=== PATIENT | female | born 1970 | race Two or more races ===

== ENCOUNTER 2016-08-19 01:22 | Inpatient (IN) | payer BC, OTHER ==
[~2016-08-19] VITALS: Ht 154.9 cm; Wt 111.5 kg
[2016-08-19 02:12] LABS: Basophils # (auto) 0.1 uL; Basophils % (auto) 0.7 % (0.0-2.0); Eosinophils # (auto) 0.2 uL; Eosinophils % (auto) 1.3 % (0.0-7.0); Hematocrit 38.4 % (36.0-46.0); Hemoglobin 12.6 g/dL (12.2-16.2); Lymphocytes # (auto) 4.5 uL; Lymphocytes % (auto) 36.2 % (10.0-50.0); Mean Corpuscular Hemoglobin 28.5 pg (28.0-32.0); Mean Corpuscular Hgb Conc. 32.7 g/dL (32.0-36.0); Mean Corpuscular Volume 87.2 fL (80.0-100.0); Mean Platelet Volume 12.1 fL (7.4-10.4); Monocytes # (auto) 0.8 uL; Monocytes % (auto) 6.7 % (0.0-12.0); Neutrophils # (auto) 6.8 uL; Neutrophils % (auto) 55.1 % (37.0-80.0); Platelet Count (auto) 225 10^3/uL (140-450); Red Cell Distribution Width 16.1 % (11.6-16.0); SUSPECT VIEW TRANSMISSION; White Blood Cell 12.4 10^3/uL (4.4-10.8)
[2016-08-19 02:26] LABS: INR 0.95 (0.9-1.15); Partial Thromboplastin Time 30.7 sec (22.64-33.71); Prothrombin Time 10.3 sec (9.37-12.3)
[2016-08-19 02:35] LABS: Albumin 3.9 g/dL (3.4-5.0); Bilirubin, Total 0.7 mg/dL (0.2-1.0); Calcium 9.4 mg/dL (8.5-10.1); Total Protein 8.4 g/dL (6.4-8.2)
[2016-08-19 02:36] LABS: Potassium 2.9 mmol/L (3.5-5.1)
[2016-08-19 02:38] LABS: B-Type Natriuretic Peptide 7.5 pg/mL (0-100); Temperature: 20.1 C (20.0-25.0)
[2016-08-19] MEDS: POTASSIUM CHL 20MEQ/100ML 100 ML IV SCH ×2 (03:16→05:30)
[2016-08-19] MEDS ORDERED: ONDANSETRON HCL 4 MG/2 ML VIAL IV ONE (05:15)
[2016-08-19] MEDS ORDERED: HYDROmorphone HCL 2 MG/ML VL IV ONE (05:15)
[2016-08-19] MEDS ORDERED: IPRATROPIUM BROM 0.5 MG/2.5ML INH SOL NEB ONE (05:45)
[2016-08-19] MEDS ORDERED: ALBUTEROL SULF 2.5 MG/0.5ML(0.5%) NEB SOLN NEB ONE (05:45)
[2016-08-19] MEDS ORDERED: cefTRIAXone 1GM/50ML D5W 50 ML IV ONE (05:45)
[2016-08-19] MEDS: SODIUM CHLORIDE 0.9% 1,000 ML IV SCH ×2 (06:39→23:06)
[2016-08-19] MEDS ORDERED: MORPHINE SULF INJ 2 MG/ML SYRINGE 1ML IV PRN (06:45)
[2016-08-19] MEDS ORDERED: ACETAMINOPHEN 325 MG TAB PO PRN (06:45)
[2016-08-19] MEDS ORDERED: NITROGLYCERIN 0.4 MG SL TAB SL PRN (06:45)
[2016-08-19] MEDS ORDERED: IPRATROPIUM BROM 0.5 MG/2.5ML INH SOL NEB PRN (06:45)
[2016-08-19] MEDS ORDERED: methylPREDNISolone SOD SUCC 125 MG/2 ML VL IV ONE (06:45)
[2016-08-19 08:20] VITALS: BP 129/58
[2016-08-19] MEDS: HYDROcodone-ACET 5/325MG TAB PO PRN ×2 (08:59→20:29)
[2016-08-19] MEDS ORDERED: ENOXAPARIN SOD 30 MG/0.3 ML SYRINGE SC SCH (10:00)
[2016-08-19] MEDS: FAMOTIDINE 20 MG TAB PO SCH ×2 (10:19→21:23)
[2016-08-19] MEDS: ENOXAPARIN SOD 40 MG/0.4 ML SYRINGE SC SCH (10:19)
[2016-08-19] MEDS: MORPHINE SULF INJ 2 MG/ML SYRINGE 1ML IV PRN ×3 (10:20→21:38)
[2016-08-19] MEDS: ONDANSETRON HCL 4 MG/2 ML VIAL IV PRN ×3 (10:20→21:38)
[2016-08-19] MEDS ORDERED: methylPREDNISolone SOD SUCC 40 MG/ML VL IV ONE ×2 (12:00→12:30)
[2016-08-19] MEDS ORDERED: DEXTROSE (50%) 50ML SYRG IV PRN (12:00)
[2016-08-19] MEDS ORDERED: PROMETHAZINE W/CODEINE 5 ML ORAL SYRUP PO PRN (12:00)
[2016-08-19] MEDS ORDERED: diphenhdrAMINE HCL 50 MG/1 ML VL IM ONE (12:30)
[2016-08-19] MEDS ORDERED: diphenhdrAMINE HCL 50 MG/1 ML VL IV ONE (12:45)
[2016-08-19] MEDS: guaiFENesin-DEXTROMETHORPHAN 5ML SYR PO PRN ×2 (12:56→17:22)
[2016-08-19 13:00] VITALS: BP 151/77
[2016-08-19 13:26] VITALS: BP 129/58
[2016-08-19 16:19] VITALS: BP 114/70
[2016-08-19] MEDS: ACCU-CHEK COMFORT CURVE STRIP VI SCH ×2 (16:43→21:24)
[2016-08-19] MEDS: InsuLIN REG 1unit/0.01ml Soln (100units/ml) SC SCH ×2 (17:29→21:38)
[2016-08-19] MEDS ORDERED: TIZA4TAB3 PO (18:52)
[2016-08-19] MEDS ORDERED: BECL80AE9 IN (18:52)
[2016-08-19] MEDS ORDERED: DICY10CA12 PO (18:52)
[2016-08-19] MEDS ORDERED: DULO1CAP3 PO (18:52)
[2016-08-19] MEDS ORDERED: METO-281 PO (18:52)
[2016-08-19] MEDS ORDERED: CITA-77 PO (18:52)
[2016-08-19] MEDS ORDERED: PROP80CA10 PO (18:52)
[2016-08-19] MEDS ORDERED: LISI-285 PO (18:52)
[2016-08-19] MEDS ORDERED: ZONI100C43 PO (18:52)
[2016-08-19] MEDS ORDERED: POTA99TA PO (18:52)
[2016-08-19] MEDS ORDERED: METF-312 PO (18:52)
[2016-08-19] MEDS ORDERED: PREG300C12 PO (18:52)
[2016-08-19] MEDS: ALBUTEROL SULF 2.5 MG/0.5ML(0.5%) NEB SOLN NEB PRN (19:29)
[2016-08-19] MEDS: methylPREDNISolone SOD SUCC 40 MG/ML VL IV SCH (21:23)
[2016-08-19] MEDS: diphenhdrAMINE HCL 25 MG CAP PO PRN (21:58)
[2016-08-19 22:00] VITALS: BP_SYST 110; BP_SYST 112; BP_DIAS 63; BP_DIAS 76
[2016-08-19] MEDS: TEMAZEPAM 15 MG CAP PO PRN (23:07)
[2016-08-20] MEDS: guaiFENesin-DEXTROMETHORPHAN 5ML SYR PO PRN ×2 (01:12→15:05)
[2016-08-20] MEDS: MORPHINE SULF INJ 2 MG/ML SYRINGE 1ML IV PRN ×4 (02:03→20:03)
[2016-08-20] MEDS: ONDANSETRON HCL 4 MG/2 ML VIAL IV PRN ×4 (02:04→20:03)
[2016-08-20 05:00] VITALS: BP 110/63
[2016-08-20 06:06] LABS: Basophils # (auto) 0 uL; Eosinophils # (auto) 0 uL; Hematocrit 37.4 % (36.0-46.0); Hemoglobin 12.2 g/dL (12.2-16.2); Lymphocytes # (auto) 1.6 uL; Lymphocytes % (auto) 15.9 % (10.0-50.0); Mean Corpuscular Hemoglobin 28.6 pg (28.0-32.0); Mean Corpuscular Hgb Conc. 32.7 g/dL (32.0-36.0); Mean Corpuscular Volume 87.6 fL (80.0-100.0); Mean Platelet Volume 12.1 fL (7.4-10.4); Monocytes # (auto) 0.3 uL; Monocytes % (auto) 2.7 % (0.0-12.0); Neutrophils # (auto) 8.1 uL; Neutrophils % (auto) 81.4 % (37.0-80.0); Platelet Count (auto) 212 10^3/uL (140-450); SUSPECT VIEW TRANSMISSION
[2016-08-20] MEDS: InsuLIN REG 1unit/0.01ml Soln (100units/ml) SC SCH ×4 (06:17→21:40)
[2016-08-20] MEDS: ACCU-CHEK COMFORT CURVE STRIP VI SCH ×4 (06:17→21:36)
[2016-08-20 06:27] LABS: Albumin 3.6 g/dL (3.4-5.0); BUN/Creatinine Ratio 14.3; Bilirubin, Total 0.5 mg/dL (0.2-1.0); Calcium 9.3 mg/dL (8.5-10.1); Magnesium 2.2 mg/dL (1.6-2.6); Potassium 4.7 mmol/L (3.5-5.1); Total Protein 8.2 g/dL (6.4-8.2)
[2016-08-20 08:00] VITALS: BP 113/62
[2016-08-20 09:00] VITALS: BP 113/62
[2016-08-20] MEDS: cefTRIAXone 1GM/50ML D5W 50 ML IV SCH (09:30)
[2016-08-20] MEDS: ENOXAPARIN SOD 40 MG/0.4 ML SYRINGE SC SCH (10:13)
[2016-08-20] MEDS: FAMOTIDINE 20 MG TAB PO SCH ×2 (10:14→21:35)
[2016-08-20] MEDS: methylPREDNISolone SOD SUCC 40 MG/ML VL IV SCH ×2 (10:14→21:35)
[2016-08-20] MEDS: diphenhdrAMINE HCL 25 MG CAP PO PRN (10:15)
[2016-08-20 12:52] VITALS: BP 106/65
[2016-08-20] MEDS: HYDROcodone-ACET 5/325MG TAB PO PRN ×3 (12:52→22:52)
[2016-08-20] MEDS ORDERED: AZITHROMYCIN 500MG/D5W 250ML 250 ML IV ONE (14:00)
[2016-08-20] MEDS: SODIUM CHLORIDE 0.9% 1,000 ML IV SCH (16:09)
[2016-08-20 17:00] VITALS: BP 135/69
[2016-08-20] MEDS: diphenhdrAMINE HCL 50 MG/1 ML VL IV PRN (18:49)
[2016-08-20] MEDS: TEMAZEPAM 15 MG CAP PO PRN (21:35)
[2016-08-20] MEDS: ALBUTEROL SULF 2.5 MG/0.5ML(0.5%) NEB SOLN NEB PRN (23:15)
[2016-08-21] MEDS: ONDANSETRON HCL 4 MG/2 ML VIAL IV PRN ×3 (00:12→10:51)
[2016-08-21] MEDS: MORPHINE SULF INJ 2 MG/ML SYRINGE 1ML IV PRN ×3 (00:12→10:52)
[2016-08-21] MEDS: guaiFENesin-DEXTROMETHORPHAN 5ML SYR PO PRN ×4 (00:12→16:35)
[2016-08-21 00:44] LABS: Urine RBC None Seen /hpf (0 - 4)
[2016-08-21 00:50] LABS: Urine Bilirubin Negative (Negative); Urine Blood Negative /uL (Negative); Urine Color Yellow (Yellow); Urine Glucose Normal (Normal); Urine Ketone Negative (Negative); Urine Nitrite Negative (Negative); Urine Squamous Epithelial Cell FEW /hpf (<5); Urine Urobilinogen Normal (Negative)
[2016-08-21] MEDS: diphenhdrAMINE HCL 50 MG/1 ML VL IV PRN ×2 (00:59→09:26)
[2016-08-21 05:00] VITALS: BP 120/70
[2016-08-21 05:30] LABS: BUN/Creatinine Ratio 16.4; Calcium 8.6 mg/dL (8.5-10.1); Potassium 4.6 mmol/L (3.5-5.1)
[2016-08-21] MEDS: ACCU-CHEK COMFORT CURVE STRIP VI SCH ×3 (06:08→16:36)
[2016-08-21] MEDS: InsuLIN REG 1unit/0.01ml Soln (100units/ml) SC SCH ×3 (06:08→17:00)
[2016-08-21] MEDS: SODIUM CHLORIDE 0.9% 1,000 ML IV SCH (08:39)
[2016-08-21 09:00] VITALS: BP 130/84
[2016-08-21] MEDS: cefTRIAXone 1GM/50ML D5W 50 ML IV SCH (09:26)
[2016-08-21] MEDS: ENOXAPARIN SOD 40 MG/0.4 ML SYRINGE SC SCH (09:27)
[2016-08-21] MEDS: FAMOTIDINE 20 MG TAB PO SCH (09:27)
[2016-08-21] MEDS: methylPREDNISolone SOD SUCC 40 MG/ML VL IV SCH (09:27)
[2016-08-21] MEDS ORDERED: AZITHROMYCIN 500MG/D5W 250ML 250 ML IV SCH (10:00)
[2016-08-21] MEDS: HYDROcodone-ACET 5/325MG TAB PO PRN (13:20)
[2016-08-21] MEDS ORDERED: SACC250C PO (13:24)
[2016-08-21] MEDS ORDERED: LEVO500T3 PO (13:24)
[2016-08-21 13:38] VITALS: BP 138/78
[2016-08-21] MEDS ORDERED: ALBUAER3 IN (14:46)
[2016-08-21] MEDS ORDERED: diphenhdrAMINE HCL 25 MG CAP PO ONE (16:15)
[2016-08-21 17:41] VITALS: BP 156/96
== END 2016-08-21 19:55 | disposition home or self-care (01) | DRG 189 ==
LOC: EDBD 01:22 → ER 01:22 → TELE 01:23 → TELE-E-ADS 08:05 → TELE-WESTW 14:19
PROVIDERS: ADMIT Internal Medicine; ATTEND Internal Medicine
DX: J96.01 Acute respiratory failure with hypoxia (principal); N17.0 Acute kidney failure with tubular necrosis; J45.901 Unspecified asthma with (acute) exacerbation; Z68.42 Body mass index [BMI] 45.0-49.9, adult; J20.9 Acute bronchitis, unspecified; E66.01 Morbid (severe) obesity due to excess calories; E87.6 Hypokalemia; E86.0 Dehydration; M79.7 Fibromyalgia; E11.21 Type 2 diabetes mellitus with diabetic nephropathy; I12.9 Hypertensive chronic kidney disease with stage 1 through stage 4 chronic kidney disease, or unspecified chronic kidney disease; N18.9 Chronic kidney disease, unspecified; F32.9 Major depressive disorder, single episode, unspecified; F41.9 Anxiety disorder, unspecified; G43.909 Migraine, unspecified, not intractable, without status migrainosus; E11.22 Type 2 diabetes mellitus with diabetic chronic kidney disease; Z79.899 Other long term (current) drug therapy
CPT/HCPCS: 36415; 36600; 71010; 80048; 80053; 80061; 81001; 82805; 82962; 83036; 83735; 83880; 84132; 84443; 85025; 85610; 85730; 87081; 93005; 94640; 96361; 96374; 96375; J0696; J1815; J2405; J3480

== ENCOUNTER 2017-07-17 20:48 | Inpatient (IN) | payer BC ==
[~2017-07-17] VITALS: Ht 162.6 cm; Wt 103.5 kg
[~2017-07-17 20:48] MED LIST: ALBUAER3 IN; BECL80AE9 IN; CITA-77 PO; DICY10CA12 PO; DULO1CAP3 PO; LEVO500T21 PO; LISI-285 PO; METF-370 PO; METO-281 PO; POTA99TA PO; PREG300C12 PO; PROP80CA10 PO; SACC250C PO; TIZA4TAB3 PO; ZONI100C43 PO
[2017-07-17 22:14] LABS: Basophils # (auto) 0.1 uL; Basophils % (auto) 0.7 % (0.0-2.0); Eosinophils # (auto) 0.2 uL; Eosinophils % (auto) 2.4 % (0.0-7.0); Hematocrit 36.7 % (36.0-46.0); Hemoglobin 12.2 g/dL (12.2-16.2); Lymphocytes # (auto) 2.3 uL; Lymphocytes % (auto) 30.2 % (10.0-50.0); Mean Corpuscular Hemoglobin 29.8 pg (28.0-32.0); Mean Corpuscular Hgb Conc. 33.1 g/dL (32.0-36.0); Mean Corpuscular Volume 89.9 fL (80.0-100.0); Monocytes # (auto) 0.5 uL; Monocytes % (auto) 6.7 % (0.0-12.0); Neutrophils # (auto) 4.6 uL; Nucleated Red Blood Cells % 0.3 %; Platelet Count (auto) 227 10^3/uL (140-450); Red Blood Cells 4.08 10^6/uL (4.0-5.20); Red Cell Distribution Width 15.8 % (11.8-14.3); White Blood Cell 7.7 10^3/uL (4.4-10.8)
[2017-07-17 22:33] LABS: Alanine Aminotransferase 50 U/L (13-56); Albumin 3.4 g/dL (3.4-5.0); Anion Gap 2 (5-15); Aspartate Aminotransferase 45 U/L (15-37); BUN/Creatinine Ratio 8.2; Blood Urea Nitrogen 8 mg/dL (7-18); Calcium 8.6 mg/dL (8.5-10.1); Carbon Dioxide 35 mmol/L (21-32); Chloride 103 mmol/L (98-107); GFR African American 80 mL/min; GFR Non-African American 66 mL/min; Glucose 104 mg/dL (74-106); Potassium 3.9 mmol/L (3.5-5.1); Sodium 140 mmol/L (136-145)
[2017-07-17 22:38] LABS: Alkaline Phosphatase 105 U/L (45-117); Bilirubin, Total 1.7 mg/dL (0.2-1.0); Total Protein 7.5 g/dL (6.4-8.2)
[2017-07-17] MEDS ORDERED: SODIUM CHLORIDE 0.9% 1,000 ML IVB ONE (22:52)
[2017-07-17] MEDS ORDERED: MORPHINE SULFATE 4 MG/ML SYR/VIAL IV ONE (23:00)
[2017-07-17 23:28] LABS: Urine Bacteria FEW /hpf (None Seen); Urine Blood Negative /uL (Negative); Urine Mucus FEW (None Seen); Urine Specific Gravity 1.023 (1.001-1.035); Urine WBC 8 /hpf (0 - 5)
[2017-07-17 23:29] LABS: Urine Pregnacy Test Negative (Negative)
[2017-07-17 23:39] LABS: INR 0.94 (0.9-1.15); Partial Thromboplastin Time 30.3 sec (22.64-33.71); Prothrombin Time 10.2 sec (9.37-12.3)
[2017-07-17 23:45] LABS: Amphetamine Screen, Urine NEGATIVE (NEGATIVE); Barbiturate Scree,Urine NEGATIVE (NEGATIVE); Benzodiazephine Screen, Urine POSITIVE (NEGATIVE); Cannabinoid Screen, Urine POSITIVE (NEGATIVE); Cocaine Screen, Urine NEGATIVE (NEGATIVE); Opiate Scree,Urine POSITIVE (NEGATIVE); Phencyclidine Screen, Urine NEGATIVE (NEGATIVE)
[2017-07-18] VITALS (8 sets, daily range): BP systolic 111–154; BP diastolic 63–84
[2017-07-18] MEDS ORDERED: ONDANSETRON HCL 4 MG/2 ML VIAL IV ONE
[2017-07-18] MEDS ORDERED: CEFTRIAXONE SODIUM 2 GM in D5W 5% 50 ML IV ONE (02:00)
[2017-07-18] MEDS ORDERED: cefTRIAXone SOD 1,000 MG VL ONE ×2 (02:08→02:10)
[2017-07-18] MEDS ORDERED: MORPHINE SULFATE 4 MG/ML SYR/VIAL IV ONE (02:15)
[2017-07-18] MEDS ORDERED: IPRATROPIUM BROM 0.5 MG/2.5ML INH SOL NEB ONE (02:15)
[2017-07-18] MEDS ORDERED: D5W 5% IV ONE (02:15)
[2017-07-18] MEDS ORDERED: ALBUTEROL SULF 2.5 MG/0.5ML(0.5%) NEB SOLN NEB ONE (02:15)
[2017-07-18] MEDS ORDERED: DEXAMETHASONE IV ONE (02:15)
[2017-07-18] MEDS ORDERED: KETOROLAC TROMETH 30 MG/ML 1ML VIAL IV ONE (02:15)
[2017-07-18] MEDS ORDERED: MORPHINE SULFATE 4 MG/ML SYR/VIAL ONE (02:26)
[2017-07-18] MEDS ORDERED: DEXAMETHASONE SOD PHOS 4 MG/1ML SDV INJ ONE (02:30)
[2017-07-18] MEDS ORDERED: ACETAMINOPHEN 500 MG TAB PO PRN (03:00)
[2017-07-18] MEDS ORDERED: ALBUTEROL SULF 2.5 MG/0.5ML(0.5%) NEB SOLN NEB PRN (03:00)
[2017-07-18] MEDS ORDERED: IPRATROPIUM BROM 0.5 MG/2.5ML INH SOL NEB PRN (03:00)
[2017-07-18] MEDS ORDERED: IOHEXOL 350 MG/ML 100ML IJ ONE (03:21)
[2017-07-18] MEDS: ACETAMINOPHEN/CODEINE#3 (300/30mg) TAB PO PRN ×3 (05:07→15:44)
[2017-07-18] MEDS: GABAPENTIN 400 MG CAP PO SCH ×3 (06:00→21:38)
[2017-07-18 08:44] LABS: Basophils # (auto) 0 uL; Basophils % (auto) 0.5 % (0.0-2.0); Eosinophils # (auto) 0.1 uL; Eosinophils % (auto) 1.1 % (0.0-7.0); Hematocrit 36.1 % (36.0-46.0); Hemoglobin 11.8 g/dL (12.2-16.2); Lymphocytes % (auto) 14.9 % (10.0-50.0); Mean Corpuscular Hemoglobin 29.2 pg (28.0-32.0); Mean Corpuscular Hgb Conc. 32.6 g/dL (32.0-36.0); Mean Corpuscular Volume 89.4 fL (80.0-100.0); Monocytes # (auto) 0.1 uL; Monocytes % (auto) 1.9 % (0.0-12.0); Neutrophils # (auto) 5.6 uL; Neutrophils % (auto) 81.6 % (37.0-80.0); Nucleated Red Blood Cells % 0.1 %; Platelet Count (auto) 228 10^3/uL (140-450); Red Blood Cells 4.04 10^6/uL (4.0-5.20); Red Cell Distribution Width 15.8 % (11.8-14.3); White Blood Cell 6.9 10^3/uL (4.4-10.8)
[2017-07-18 09:00] LABS: Calcium 8.3 mg/dL (8.5-10.1); Potassium 4.4 mmol/L (3.5-5.1)
[2017-07-18 09:02] LABS: BUN/Creatinine Ratio 8.6
[2017-07-18] MEDS: metFORMIN HYDROCHLORIDE 500 MG TAB PO SCH (10:00)
[2017-07-18] MEDS: ONDANSETRON HCL 4 MG/2 ML VIAL IV PRN ×3 (11:39→22:01)
[2017-07-18] MEDS ORDERED: TEMAZEPAM 15 MG CAP PO ONE (21:00)
[2017-07-18] MEDS ORDERED: diphenhdrAMINE HCL 25 MG CAP PO PRN (21:00)
[2017-07-18] MEDS: ATORVASTATIN 20 MG TAB PO SCH (21:37)
[2017-07-18] MEDS: clonazePAM 0.5 MG TAB PO PRN (21:38)
[2017-07-19] MEDS: HYDROcodone-ACET 7.5/325MG TAB PO PRN ×3 (00:53→22:43)
[2017-07-19] MEDS: ONDANSETRON HCL 4 MG/2 ML VIAL IV PRN ×3 (02:54→16:34)
[2017-07-19] MEDS: GABAPENTIN 400 MG CAP PO SCH ×3 (08:07→22:42)
[2017-07-19 09:00] VITALS: BP 148/85
[2017-07-19] MEDS: metFORMIN HYDROCHLORIDE 500 MG TAB PO SCH (09:39)
[2017-07-19 13:00] VITALS: BP 109/71
[2017-07-19] MEDS: clonazePAM 0.5 MG TAB PO PRN ×2 (15:04→22:43)
[2017-07-19] MEDS ORDERED: ASPirin 81 mg TAB PO ONE (15:30)
[2017-07-19] MEDS ORDERED: ENOXAPARIN SOD 40 MG/0.4 ML SYRINGE SC ONE (15:45)
[2017-07-19 18:17] VITALS: BP 104/45
[2017-07-19] MEDS: diphenhdrAMINE HCL 50 MG/1 ML VL IV PRN (21:07)
[2017-07-19] MEDS: PROMETHAZINE HCL 25 MG/ML 1ML IV PRN (21:08)
[2017-07-19 22:00] VITALS: BP 135/89
[2017-07-19] MEDS ORDERED: ENOXAPARIN SOD 40 MG/0.4 ML SYRINGE SC SCH (22:00)
[2017-07-19] MEDS: ATORVASTATIN 20 MG TAB PO SCH (22:42)
[2017-07-20 05:00] VITALS: BP 115/58
[2017-07-20] MEDS: GABAPENTIN 400 MG CAP PO SCH ×3 (05:18→21:40)
[2017-07-20] MEDS: diphenhdrAMINE HCL 50 MG/1 ML VL IV PRN ×4 (05:18→21:41)
[2017-07-20] MEDS: PROMETHAZINE HCL 25 MG/ML 1ML IV PRN ×3 (05:52→20:29)
[2017-07-20 08:01] LABS: Cholesterol 173 mg/dL (< 200); HDL Cholesterol 40 mg/dL (40-59); LDL Cholesterol 108 mg/dL (< 100); Triglycerides 200 mg/dL (< 150)
[2017-07-20 08:30] VITALS: BP 103/74
[2017-07-20] MEDS: CITALOPRAM HYDROBR 20 MG TAB PO SCH (09:11)
[2017-07-20] MEDS: ASPirin 81 mg TAB PO SCH (09:11)
[2017-07-20] MEDS: clonazePAM 0.5 MG TAB PO PRN ×2 (09:12→17:03)
[2017-07-20] MEDS: HYDROcodone-ACET 7.5/325MG TAB PO PRN (09:12)
[2017-07-20] MEDS: metFORMIN HYDROCHLORIDE 500 MG TAB PO SCH (09:13)
[2017-07-20] MEDS: ENOXAPARIN SOD 40 MG/0.4 ML SYRINGE SC SCH ×2 (09:13→21:41)
[2017-07-20 09:46] LABS: Free T3 1.68 pg/mL (2.3-4.2); Free T4 (Free Thyroxine) 0.91 ng/dL (0.89-1.76)
[2017-07-20 09:55] LABS: Folate (Folic Acid) 16.6 ng/mL (5.38-24)
[2017-07-20] MEDS ORDERED: ENOXAPARIN SOD 40 MG/0.4 ML SYRINGE SC SCH ×2 (10:00)
[2017-07-20] MEDS ORDERED: MORPHINE SULFATE 4 MG/ML SYR/VIAL IV PRN (11:15)
[2017-07-20] MEDS: PANTOPRAZOLE 40 MG/10 ML VIAL IV SCH (11:45)
[2017-07-20 13:09] VITALS: BP 123/69
[2017-07-20 16:56] VITALS: BP 124/88
[2017-07-20] MEDS: MORPHINE SULFATE 4 MG/ML SYR/VIAL IV PRN ×2 (17:29→21:41)
[2017-07-20 20:06] VITALS: BP 124/88
[2017-07-20] MEDS: ATORVASTATIN 20 MG TAB PO SCH (21:40)
[2017-07-20 22:00] VITALS: BP 131/77
[2017-07-21] MEDS: PROMETHAZINE HCL 25 MG/ML 1ML IV PRN ×5 (00:59→21:45)
[2017-07-21] MEDS: diphenhdrAMINE HCL 50 MG/1 ML VL IV PRN ×4 (02:51→20:12)
[2017-07-21] MEDS: MORPHINE SULFATE 4 MG/ML SYR/VIAL IV PRN ×4 (02:52→20:12)
[2017-07-21 03:08] LABS: RPR Non Reactive (Non Reactive)
[2017-07-21] MEDS: clonazePAM 0.5 MG TAB PO PRN ×3 (03:54→21:44)
[2017-07-21 05:58] VITALS: BP 134/89
[2017-07-21] MEDS: GABAPENTIN 400 MG CAP PO SCH ×3 (06:02→21:44)
[2017-07-21 09:12] VITALS: BP 144/83
[2017-07-21] MEDS: metFORMIN HYDROCHLORIDE 500 MG TAB PO SCH (10:00)
[2017-07-21] MEDS: PANTOPRAZOLE 40 MG/10 ML VIAL IV SCH (10:00)
[2017-07-21] MEDS: ASPirin 81 mg TAB PO SCH (10:30)
[2017-07-21] MEDS: CITALOPRAM HYDROBR 20 MG TAB PO SCH (10:31)
[2017-07-21] MEDS: ENOXAPARIN SOD 40 MG/0.4 ML SYRINGE SC SCH ×2 (10:32→21:51)
[2017-07-21 12:00] VITALS: BP 146/94
[2017-07-21] MEDS ORDERED: clonazePAM 0.5 MG TAB PO PRN (12:45)
[2017-07-21] MEDS ORDERED: GASTROGRAFIN 30 ML SOL ONE (15:13)
[2017-07-21 17:00] VITALS: BP 97/75
[2017-07-21] MEDS: SUCRALFATE 1 GM/10 ML ORAL SUSP PO SCH ×2 (17:00→21:43)
[2017-07-21 21:39] VITALS: BP 129/83
[2017-07-21] MEDS: PANTOPRAZOLE 40 MG TAB PO SCH (21:44)
[2017-07-21] MEDS: ATORVASTATIN 20 MG TAB PO SCH (21:44)
[2017-07-22] MEDS: diphenhdrAMINE HCL 50 MG/1 ML VL IV PRN ×4 (01:09→17:30)
[2017-07-22] MEDS: MORPHINE SULFATE 4 MG/ML SYR/VIAL IV PRN ×2 (01:09→07:57)
[2017-07-22 05:08] VITALS: BP 126/83
[2017-07-22] MEDS: GABAPENTIN 400 MG CAP PO SCH ×2 (06:00→12:54)
[2017-07-22] MEDS: SUCRALFATE 1 GM/10 ML ORAL SUSP PO SCH ×3 (06:58→17:00)
[2017-07-22] MEDS: clonazePAM 0.5 MG TAB PO PRN ×2 (07:56→16:12)
[2017-07-22 08:20] VITALS: BP 128/82
[2017-07-22 08:29] VITALS: BP 128/82
[2017-07-22] MEDS: PROMETHAZINE HCL 25 MG/ML 1ML IV PRN ×2 (09:43→14:47)
[2017-07-22] MEDS: CITALOPRAM HYDROBR 20 MG TAB PO SCH (09:43)
[2017-07-22] MEDS: metFORMIN HYDROCHLORIDE 500 MG TAB PO SCH (10:00)
[2017-07-22] MEDS ORDERED: PANT40T PO (10:00)
[2017-07-22] MEDS ORDERED: MORPHINE SULFATE 4 MG/ML SYR/VIAL IV PRN (10:00)
[2017-07-22] MEDS: PANTOPRAZOLE 40 MG TAB PO SCH (10:00)
[2017-07-22] MEDS ORDERED: ENOXAPARIN SOD 40 MG/0.4 ML SYRINGE SC SCH (10:00)
[2017-07-22] MEDS ORDERED: fentaNYL CITRATE 100 MCG/2 ML VL ONE (11:11)
[2017-07-22] MEDS ORDERED: MIDAZOLAM HCL 1MG/1ML-2 ML VIAL ONE ×2 (11:11→11:23)
[2017-07-22] MEDS ORDERED: PROPOFOL 10 MG/ML 20 ML IV ONE (11:11)
[2017-07-22] MEDS ORDERED: MORPHINE SULFATE 10 MG/5 ML ORAL SOLN PO PRN (13:00)
[2017-07-22 16:32] VITALS: BP 129/85
[2017-07-22 16:42] VITALS: BP 129/85
== END 2017-07-22 18:33 | disposition home or self-care (01) | DRG 551 ==
LOC: EDUNIT# 20:48 → ER 21:00 → OVERFLOW 21:01 → EAST 07-18 04:12
PROVIDERS: ADMIT Nurse Practitioner Family; ATTEND Internal Medicine
PROC: 5A09357 Assistance with Respiratory Ventilation, Less than 24 Consecutive Hours, Continuous Positive Airway Pressure (ICD-10-PCS; 2017-07-21)
PROC: 0DB68ZX Excision of Stomach, Via Natural or Artificial Opening Endoscopic, Diagnostic (ICD-10-PCS; principal; 2017-07-22 11:20)
DX: M51.16 Intervertebral disc disorders with radiculopathy, lumbar region (principal); K29.61 Other gastritis with bleeding; I69.354 Hemiplegia and hemiparesis following cerebral infarction affecting left non-dominant side; E66.01 Morbid (severe) obesity due to excess calories; J45.901 Unspecified asthma with (acute) exacerbation; K29.81 Duodenitis with bleeding; N39.0 Urinary tract infection, site not specified; M47.896 Other spondylosis, lumbar region; W06.XXXA Fall from bed, initial encounter; K21.9 Gastro-esophageal reflux disease without esophagitis; E11.9 Type 2 diabetes mellitus without complications; E28.319 Asymptomatic premature menopause; E66.9 Obesity, unspecified; E78.5 Hyperlipidemia, unspecified; E78.00 Pure hypercholesterolemia, unspecified; F12.10 Cannabis abuse, uncomplicated; F41.0 Panic disorder [episodic paroxysmal anxiety]; G89.4 Chronic pain syndrome; I10 Essential (primary) hypertension; R26.9 Unspecified abnormalities of gait and mobility; M79.7 Fibromyalgia; R29.6 Repeated falls; R79.1 Abnormal coagulation profile; Z79.82 Long term (current) use of aspirin; Z79.899 Other long term (current) drug therapy; Z68.39 Body mass index [BMI] 39.0-39.9, adult; Z82.49 Family history of ischemic heart disease and other diseases of the circulatory system; Z79.84 Long term (current) use of oral hypoglycemic drugs; Z90.49 Acquired absence of other specified parts of digestive tract; Z98.51 Tubal ligation status; Z91.14 Patient's other noncompliance with medication regimen; Y93.89 Activity, other specified; Y92.89 Other specified places as the place of occurrence of the external cause; Y99.8 Other external cause status
CPT/HCPCS: 36415; 36600; 43239; 70450; 71045; 71275; 72125; 72131; 72192; 74176; 80048; 80053; 80061; 80307; 81001; 81025; 82607; 82746; 82805; 82962; 83735; 83880; 84439; 84481; 84484; 85025; 85379; 85610; 85730; 86592; 93005; 93306; 93886; 94640; 94660; 95819; 96361; 96365; 96375; C9113; J0696; J1100; J1885; J2250; J2405; J2704; J7060

== ENCOUNTER 2018-07-18 19:44 | Inpatient (IN) | payer BC | END 2018-07-31 14:45 | disposition home or self-care (01) | LOC: ER 19:44 → WEST WING 07-22 20:14 → OVERFLOW 22:32 → WEST WING 07-19 23:19 | PROC: 0DJD8ZZ Inspection of Lower Intestinal Tract, Via Natural or Artificial Opening Endoscopic (ICD-10-PCS; principal; 2018-07-20 11:53) | PROC: 0DB98ZX Excision of Duodenum, Via Natural or Artificial Opening Endoscopic, Diagnostic (ICD-10-PCS; 2018-07-20 11:53) | PROC: 0BJ08ZZ Inspection of Tracheobronchial Tree, Via Natural or Artificial Opening Endoscopic (ICD-10-PCS; 2018-07-20 11:53) | DX: N17.0 Acute kidney failure with tubular necrosis (principal); J18.1 Lobar pneumonia, unspecified organism; G89.29 Other chronic pain; J45.909 Unspecified asthma, uncomplicated; Z86.73 Personal history of transient ischemic attack (TIA), and cerebral infarction without residual deficits; N18.9 Chronic kidney disease, unspecified; E11.22 Type 2 diabetes mellitus with diabetic chronic kidney disease; I12.9 Hypertensive chronic kidney disease with stage 1 through stage 4 chronic kidney disease, or unspecified chronic kidney disease; R10.13 Epigastric pain; R06.03 Acute respiratory distress; K64.8 Other hemorrhoids; K29.80 Duodenitis without bleeding; K29.70 Gastritis, unspecified, without bleeding; K29.90 Gastroduodenitis, unspecified, without bleeding ==

== ENCOUNTER 2018-09-06 23:16 | Inpatient (IN) | payer BC ==
[~2018-09-06] VITALS: Ht 160 cm; Wt 83.5 kg
[~2018-09-06 23:16] MED LIST changes: -LEVO500T21 PO; -LISI-285 PO; +PANT40T PO; -PROP80CA10 PO; +TIZA4CAP PO; +ZOLP10TA PO
[2018-09-07 00:08] LABS: Urine Bacteria FEW /hpf (None Seen); Urine Blood Negative /uL (Negative); Urine Specific Gravity 1.018 (1.001-1.035); Urine WBC 8 /hpf (0 - 5)
[2018-09-07 00:39] LABS: Alcohol, Urine < 3.0 mg/dL (0-5); Amphetamine Screen, Urine NEGATIVE (NEGATIVE); Barbiturate Scree,Urine NEGATIVE (NEGATIVE); Benzodiazephine Screen, Urine NEGATIVE (NEGATIVE); Cannabinoid Screen, Urine NEGATIVE (NEGATIVE); Cocaine Screen, Urine NEGATIVE (NEGATIVE); Opiate Scree,Urine NEGATIVE (NEGATIVE); Phencyclidine Screen, Urine NEGATIVE (NEGATIVE)
[2018-09-07 00:51] LABS: Basophils # (auto) 0 uL; Basophils % (auto) 0.6 % (0.0-2.0); Eosinophils # (auto) 0.2 uL; Eosinophils % (auto) 1.9 % (0.0-7.0); Hematocrit 37.1 % (36.0-46.0); Hemoglobin 12.1 g/dL (12.2-16.2); Lymphocytes # (auto) 1.8 uL; Mean Corpuscular Hgb Conc. 32.6 g/dL (32.0-36.0); Mean Corpuscular Volume 88.9 fL (80.0-100.0); Monocytes # (auto) 0.8 uL; Neutrophils # (auto) 5.9 uL; Neutrophils % (auto) 67.5 % (37.0-80.0); Nucleated Red Blood Cells % 0.1 %; Platelet Count (auto) 232 10^3/uL (140-450); Red Blood Cells 4.17 10^6/uL (4.0-5.20); Red Cell Distribution Width 15.7 % (11.8-14.3); White Blood Cell 8.7 10^3/uL (4.4-10.8)
[2018-09-07 01:03] LABS: INR 0.97 (0.9-1.15); Partial Thromboplastin Time 33.9 sec (23.78-33.04); Prothrombin Time 10.4 sec (9.27-12.13)
[2018-09-07 01:07] LABS: Alanine Aminotransferase 70 U/L (13-56); Albumin 3.5 g/dL (3.4-5.0); Anion Gap 11 (5-15); Aspartate Aminotransferase 163 U/L (15-37); BUN/Creatinine Ratio 12.9; Blood Urea Nitrogen 18 mg/dL (7-18); Calcium 9.1 mg/dL (8.5-10.1); Carbon Dioxide 23 mmol/L (21-32); Chloride 107 mmol/L (98-107); GFR African American 52 mL/min; GFR Non-African American 43 mL/min; Glucose 114 mg/dL (74-106); Magnesium 2.1 mg/dL (1.6-2.6); Potassium 3.7 mmol/L (3.5-5.1); Sodium 141 mmol/L (136-145)
[2018-09-07 01:12] LABS: Alkaline Phosphatase 116 U/L (45-117); Total Protein 7.3 g/dL (6.4-8.2)
[2018-09-07] MEDS ORDERED: cefTRIAXone 1GM/50ML D5W 50 ML IV ONE (05:45)
[2018-09-07] MEDS ORDERED: ONDANSETRON HCL 4 MG/2 ML VIAL IV ONE (05:45)
[2018-09-07] MEDS ORDERED: fentaNYL CITRATE 100 MCG/2 ML VL IV ONE (05:45)
[2018-09-07] MEDS ORDERED: ACETAMINOPHEN 500 MG TAB PO PRN (09:30)
[2018-09-07] MEDS ORDERED: DEXTROSE (50%) 50ML SYRG IV PRN (09:30)
[2018-09-07] MEDS ORDERED: NITROGLYCERIN 0.4 MG SL TAB SL PRN (09:30)
[2018-09-07] MEDS ORDERED: MORPHINE SULF INJ 2 MG/ML SYRINGE 1ML IV PRN (09:30)
[2018-09-07] MEDS ORDERED: SODIUM CHLORIDE 0.9% 500 ML IV ONE (09:45)
[2018-09-07] MEDS: CITALOPRAM HYDROBR 20 MG TAB PO SCH (10:12)
[2018-09-07] MEDS: MORPHINE SULF INJ 2 MG/ML SYRINGE 1ML IV PRN ×3 (10:12→22:34)
[2018-09-07] MEDS: metroNIDAZOLE 500MG/100ML 100 ML IV SCH ×3 (10:12→22:33)
[2018-09-07] MEDS: SODIUM CHLORIDE 0.9% 1,000 ML IV SCH ×2 (10:12→20:39)
[2018-09-07] MEDS: ONDANSETRON HCL 4 MG/2 ML VIAL IV PRN (10:13)
[2018-09-07] MEDS: InsuLIN REG 1unit/0.01ml Soln (100units/ml) SC SCH ×3 (11:30→22:33)
[2018-09-07] MEDS: ACCU-CHEK COMFORT CURVE STRIP VI SCH ×3 (11:57→22:33)
[2018-09-07] MEDS ORDERED: PROMETHAZINE HCL 25 MG/ML 1ML IV ONE (12:30)
[2018-09-07] MEDS: PROMETHAZINE HCL 25 MG/ML 1ML IV PRN ×2 (12:38→17:28)
[2018-09-07] MEDS: GABAPENTIN 100 MG CAP PO SCH ×2 (14:19→22:33)
[2018-09-07 16:50] VITALS: BP 127/74
--- NOTE | 2018-09-07 16:50 | NUR ---
Telemetry admit from ER JORDYFUENTES admitted to Telemetry unit. Patient oriented to Vivek Roca, primary RN, unit, room, bed, and unit policies regarding patient care and visiting hours. Patient now on continuous telemetry monitoring, tele box # [id number] and telemetry reading on arrival to unit is [id number]. Patient placed on bedside oxygen, weighed by bed scale and encouraged to call if they need something. All questions and concerns addressed, patient verbalized understanding.
--- NOTE | 2018-09-07 20:00 | NUR ---
RECEIVED PT IN BED, A/O X4, IN NO ACUTE DISTRESS. POC REVIEWED WITH PT, VERBALIZED UNDERSTANDING. CALL LIGHT WITHIN REACH, ENCOURAGED TO CALL IF HELP IS NEEDED. SIDE RAILS UP X2, BED IN LOWEST LOCKED POSITION. BED ALARM ON. CONTINUE CARE.
[2018-09-07] MEDS: HYDROcodone-ACET 5/325MG TAB PO PRN (20:40)
[2018-09-07] MEDS: QUEtiapine FUMARATE 100 MG TAB PO SCH (22:33)
[2018-09-07] MEDS ORDERED: TEMAZEPAM 15 MG CAP PO ONE (22:45)
[2018-09-07 23:43] VITALS: BP 157/86
[2018-09-08] MEDS: PROMETHAZINE HCL 25 MG/ML 1ML IV PRN ×3 (00:13→20:08)
[2018-09-08] MEDS: MORPHINE SULF INJ 2 MG/ML SYRINGE 1ML IV PRN ×4 (03:16→20:08)
[2018-09-08] MEDS: SODIUM CHLORIDE 0.9% 1,000 ML IV SCH ×2 (03:50→16:32)
[2018-09-08] MEDS: metroNIDAZOLE 500MG/100ML 100 ML IV SCH ×4 (03:50→21:11)
[2018-09-08 04:59] VITALS: BP 154/89
[2018-09-08] MEDS: GABAPENTIN 100 MG CAP PO SCH ×3 (06:18→21:09)
[2018-09-08] MEDS: InsuLIN REG 1unit/0.01ml Soln (100units/ml) SC SCH ×4 (06:18→21:14)
[2018-09-08] MEDS: ACCU-CHEK COMFORT CURVE STRIP VI SCH ×4 (06:19→21:12)
--- NOTE | 2018-09-08 06:20 | NUR ---
Schwab catheter dc'd Patient refusing schwab. Schwab dc'd with clean technique following deflation of balloon. Patient tolerated well with no complaints of pain. Continue care.
[2018-09-08 06:43] LABS: Basophils # (auto) 0 uL; Basophils % (auto) 0.7 % (0.0-2.0); Eosinophils # (auto) 0.1 uL; Eosinophils % (auto) 1.8 % (0.0-7.0); Hematocrit 36.3 % (36.0-46.0); Hemoglobin 11.8 g/dL (12.2-16.2); Lymphocytes # (auto) 1.7 uL; Lymphocytes % (auto) 30.2 % (10.0-50.0); Mean Corpuscular Hemoglobin 29.2 pg (28.0-32.0); Mean Corpuscular Hgb Conc. 32.5 g/dL (32.0-36.0); Mean Corpuscular Volume 89.9 fL (80.0-100.0); Monocytes # (auto) 0.6 uL; Monocytes % (auto) 10.2 % (0.0-12.0); Neutrophils # (auto) 3.1 uL; Neutrophils % (auto) 57.1 % (37.0-80.0); Nucleated Red Blood Cells % 0.1 %; Platelet Count (auto) 214 10^3/uL (140-450); Red Blood Cells 4.04 10^6/uL (4.0-5.20); Red Cell Distribution Width 15.6 % (11.8-14.3); White Blood Cell 5.5 10^3/uL (4.4-10.8)
[2018-09-08 07:01] LABS: Calcium 8.4 mg/dL (8.5-10.1); Potassium 3.7 mmol/L (3.5-5.1)
[2018-09-08 07:05] LABS: BUN/Creatinine Ratio 6.7; Magnesium 2.3 mg/dL (1.6-2.6)
--- NOTE | 2018-09-08 08:00 | NUR ---
Opening Shift Note Assumed care of patient, awake and alert. No S/S of distress/SOB or pain. Instructed on POC and to call for assist PRN, will continue to monitor for changes Q1hr and PRN.
[2018-09-08 09:00] VITALS: BP 112/65
[2018-09-08] MEDS: cefTRIAXone 1GM/50ML D5W 50 ML IV SCH (10:57)
[2018-09-08] MEDS: CITALOPRAM HYDROBR 20 MG TAB PO SCH (10:58)
[2018-09-08] MEDS: ONDANSETRON HCL 4 MG/2 ML VIAL IV PRN (11:13)
[2018-09-08 13:00] VITALS: BP 120/71
[2018-09-08] MEDS ORDERED: LIDOCAINE 5% TOPICAL PATCH TOP ONE (13:30)
[2018-09-08 16:57] VITALS: BP 76/47
--- NOTE | 2018-09-08 17:25 | NUR ---
Paged Shantanu DOUGLASS.
--- NOTE | 2018-09-08 17:30 | NUR ---
Shantanu Coffey called back. Informed Shantanu regarding patient's blood pressure 79/41 and highest 81/46. Patient states that her blood pressure drops when she takes Zanaflex. EVONNE Fournier order 500 bolus for 30 minutes and hold Zanaflex. Order carried out.
[2018-09-08 17:35] VITALS: BP 81/46
--- NOTE | 2018-09-08 19:05 | NUR ---
Opening Shift Note Assumed care of patient from day shift RN Michael. Pt is asleep, on 2L NC, respirations even equal and unlabored. No S/S of distress/SOB or pain. Safety maintained with bed rails upx2, locked and in lowest position with call bowens within reach. Instructed on POC and to call for assist PRN, will continue to monitor for changes Q1hr and PRN.
[2018-09-08] MEDS: QUEtiapine FUMARATE 100 MG TAB PO SCH (21:09)
[2018-09-08 22:00] VITALS: BP 102/57
[2018-09-08] MEDS ORDERED: TEMAZEPAM 15 MG CAP PO ONE (22:45)
[2018-09-09] MEDS: metroNIDAZOLE 500MG/100ML 100 ML IV SCH ×3 (04:00→15:57)
[2018-09-09 06:00] VITALS: BP 123/74
[2018-09-09] MEDS: GABAPENTIN 100 MG CAP PO SCH ×3 (06:03→21:18)
[2018-09-09] MEDS: ACCU-CHEK COMFORT CURVE STRIP VI SCH ×4 (06:05→21:31)
[2018-09-09] MEDS: InsuLIN REG 1unit/0.01ml Soln (100units/ml) SC SCH ×4 (06:05→21:31)
[2018-09-09] MEDS: MORPHINE SULF INJ 2 MG/ML SYRINGE 1ML IV PRN ×4 (06:37→19:55)
[2018-09-09] MEDS: ONDANSETRON HCL 4 MG/2 ML VIAL IV PRN ×2 (08:27→14:53)
[2018-09-09 09:00] VITALS: BP 133/76
[2018-09-09] MEDS: cefTRIAXone 1GM/50ML D5W 50 ML IV SCH (09:12)
--- NOTE | 2018-09-09 09:24 | NUR ---
Opening Shift Note Assumed pt care this AM. Pt is awake and alert x4. Sitting quietly in her bed. No s/s of SOB or distress. Lung sounds were clear and unlabored. Pt did report some feelings of n/v. Safety maintained with all side rails up and bed in lowest position. Explained POC with patient. Will continue to monitor and reevaluate PRN and round Q1hr
--- NOTE | 2018-09-09 09:36 | NUR ---
SCD Pt stated she wanted to take a break from having the SCDs on. Will place back on during shift. Addendum: 09/09/18 at 0937 by EULALIO CRAVEN RN RN Amended: Links added.
[2018-09-09] MEDS: CITALOPRAM HYDROBR 20 MG TAB PO SCH (10:23)
[2018-09-09] MEDS: LIDOCAINE 5% TOPICAL PATCH TOP SCH (10:23)
[2018-09-09] MEDS: SODIUM CHLORIDE 0.9% 1,000 ML IV SCH ×2 (11:15→12:05)
[2018-09-09 13:00] VITALS: BP 162/92
[2018-09-09] MEDS: PROMETHAZINE HCL 25 MG/ML 1ML IV PRN ×2 (13:01→19:56)
[2018-09-09] MEDS: HYDROcodone-ACET 5/325MG TAB PO PRN ×2 (13:22→19:40)
[2018-09-09] MEDS ORDERED: ALBUTEROL SULF 2.5 MG/0.5ML(0.5%) NEB SOLN NEB PRN (16:30)
[2018-09-09] MEDS ORDERED: IPRATROPIUM BROM 0.5 MG/2.5ML INH SOL NEB PRN (16:30)
[2018-09-09 17:00] VITALS: BP 100/57
--- NOTE | 2018-09-09 17:34 | NUR ---
PAGED PT C/O ITCHING AND REQUESTING SLEEPING AID. NO RASH NOTED AT THIS TIME. BREATH SOUNDS REMAIN CLEAR. PT C/O 'NEUROLOGICAL ITCHING'. ON-CALL HOSPITALIST PAGED. WAITING ON RESPONSE.
[2018-09-09] MEDS: diphenhdrAMINE HCL 50 MG/1 ML VL IV PRN (18:33)
--- NOTE | 2018-09-09 20:30 | NUR ---
Respiratory note: ASSESSMENT FOR PRN MED NEB TX. NO RESPIRATORY DISTRESS NOTED AT THIS TIME. HR 71, SPO2 97% ON 4L NC, RR 18, BS CLEAR/DIMINISHED. PT AWARE TO HAVE RN PAGE RT IF MED NEB TX IS NEEDED, WILL CONTINUE TO MONITOR ORDERED.
[2018-09-09] MEDS: QUEtiapine FUMARATE 100 MG TAB PO SCH (21:18)
[2018-09-09 21:58] VITALS: BP 100/57
[2018-09-09 22:00] VITALS: BP 114/67
[2018-09-10] MEDS: MORPHINE SULF INJ 2 MG/ML SYRINGE 1ML IV PRN ×4 (03:23→15:54)
[2018-09-10] MEDS: PROMETHAZINE HCL 25 MG/ML 1ML IV PRN ×3 (03:24→16:28)
[2018-09-10] MEDS: diphenhdrAMINE HCL 50 MG/1 ML VL IV PRN ×3 (03:24→16:28)
[2018-09-10 05:39] VITALS: BP 101/64
[2018-09-10] MEDS: GABAPENTIN 100 MG CAP PO SCH ×2 (06:18→15:21)
[2018-09-10] MEDS: ACCU-CHEK COMFORT CURVE STRIP VI SCH ×3 (06:28→16:37)
[2018-09-10] MEDS: InsuLIN REG 1unit/0.01ml Soln (100units/ml) SC SCH ×3 (06:30→16:38)
--- NOTE | 2018-09-10 07:41 | NUR ---
Report given to Isidra Armendariz to assume care, patient is resting no distress.
[2018-09-10 08:00] VITALS: BP 136/85
--- NOTE | 2018-09-10 08:00 | NUR ---
RECEIVED PT RESTING IN BED, CALL LIGHT WITHIN REACH, PT REPORTS PAIN ON BACK 10, REQUESTED PAIN MEDICATION, WILL MEDIATE PT ORDER. REPORTED BY NURSE THAT PT IS INCONTINENT, PT REPORTED TO BE ABLE FEEL WHEN SHE HAS TO URINATE OR HAVE A BM, PT EDUCATED TO CALL FOR ASSISTANCE TO GET OUT OF BED AND USE THE BED SIDE COMMODE.
[2018-09-10] MEDS: cefTRIAXone 1GM/50ML D5W 50 ML IV SCH (09:44)
[2018-09-10] MEDS: CITALOPRAM HYDROBR 20 MG TAB PO SCH (09:45)
[2018-09-10] MEDS: LIDOCAINE 5% TOPICAL PATCH TOP SCH (09:45)
[2018-09-10] MEDS: HYDROcodone-ACET 5/325MG TAB PO PRN (10:59)
--- NOTE | 2018-09-10 11:08 | NUR ---
Respiratory note: PATIENT RECEIVED PRN BREATHING TX DUE TO FEELING SHORT OF BREATH AND SLIGHT CHEST TIGHTNESS STATED. PATIENT IS ON 4 L NASAL CANNULA MAINTAINING SPO2 ABOVE 92%. PATIENT IS AWARE TO HAVE RT PAGED IF BREATHING TX IS NEEDED. SONIA MUNOZ IS AT BEDSIDE AND IS AWARE, WILL CONTINUE TO MONITOR.
[2018-09-10 12:00] VITALS: BP 146/97
--- NOTE | 2018-09-10 15:45 | NUR ---
[facility]. Advised pt that she has a PPO insurance through [facility] and placement would be determined if she has a benefit under her PPO plan , if she meets criteria, and if their is a contracted facility that will accept her. MARY Mayes contacted [facility] and [facility]. She was informed that [facility] was not contracted with [facility]. Contacted Local SNF for bed availability and they declined to take the pt. Informed pt and Dr. Barry of the above.
[2018-09-10 16:39] VITALS: BP 127/76
--- NOTE | 2018-09-10 16:45 | NUR ---
CALLED AND SPOKE TO D[employer]RIOS/ IT COMMUNICATIONS MANAGER REGARDING THE SNF PLACEMENT, PER DIMITRIOS PT WAS NOT ACCEPTED TO [facility] AND DOES NOT QUALIFY FOR SNF, PT CAN BE D/C HOME TODAY AND FOLLOW UP WITH PT'S PCP FOR OUT PT PHYSICAL THERAPY.
[2018-09-10 17:00] VITALS: BP 127/76
--- NOTE | 2018-09-10 17:20 | NUR ---
Discharge instructions given as ordered. Encourage to follow up with PMD as instructed. All questions and concerns addressed. Patient verbalized understanding. Medication reconciliation form completed and copy given to patient. Home medications held in Pharmacy returned to patient, no needed vaccines to be given. IV removed with catheter intact, pressure dressing applied.
--- NOTE | 2018-09-10 18:00 | NUR ---
Pt's here to pick pack worker pt, patient taken to vehicle via wheelchair with all personal belongings, accompanied by staff and family member. No distress noted at time of departure.
[2018-09-11] MEDS ORDERED: ASPirin-EC 81 mg tab PO SCH (10:00)
== END 2018-09-10 18:00 | disposition home or self-care (01) | DRG 872 ==
LOC: ER 23:20 → TELE 09-07 09:26 → TELE-EAST 09-07 16:41
PROVIDERS: ADMIT Nurse Practitioner Acute Care; ATTEND Internal Medicine
DX: A41.9 Sepsis, unspecified organism (principal); F11.20 Opioid dependence, uncomplicated; N39.0 Urinary tract infection, site not specified; E66.01 Morbid (severe) obesity due to excess calories; E78.5 Hyperlipidemia, unspecified; F32.9 Major depressive disorder, single episode, unspecified; F41.9 Anxiety disorder, unspecified; G62.9 Polyneuropathy, unspecified; G89.4 Chronic pain syndrome; J45.909 Unspecified asthma, uncomplicated; M51.16 Intervertebral disc disorders with radiculopathy, lumbar region; R29.6 Repeated falls; R62.7 Adult failure to thrive; F12.90 Cannabis use, unspecified, uncomplicated; E11.22 Type 2 diabetes mellitus with diabetic chronic kidney disease; N18.3 Chronic kidney disease, stage 3 (moderate); M79.7 Fibromyalgia; I12.9 Hypertensive chronic kidney disease with stage 1 through stage 4 chronic kidney disease, or unspecified chronic kidney disease; Z79.84 Long term (current) use of oral hypoglycemic drugs; Z82.49 Family history of ischemic heart disease and other diseases of the circulatory system; Z86.73 Personal history of transient ischemic attack (TIA), and cerebral infarction without residual deficits
CPT/HCPCS: 36415; 51702; 71045; 71250; 72131; 74176; 80048; 80053; 80307; 81001; 82962; 83735; 83880; 84484; 85025; 85610; 85730; 87040; 87086; 93005; 94640; 96365; 96375; 96376; A6257; G0378; J0696; J2405; J3490

== ENCOUNTER 2018-09-22 11:04 | Inpatient (IN) | payer BC ==
[~2018-09-22] VITALS: Ht 162.6 cm; Wt 98.2 kg
[~2018-09-22 11:04] MED LIST changes: -DICY10CA12 PO; -METO-281 PO; -POTA99TA PO; -PREG300C12 PO; -SACC250C PO; -TIZA4CAP PO; -ZONI100C43 PO
[2018-09-22] MEDS ORDERED: SODIUM CHLORIDE 0.9% 1,000 ML IVB ONE (12:18)
[2018-09-22 12:23] LABS: Basophils # (auto) 0.1 uL; Eosinophils # (auto) 0 uL; Hemoglobin 7.6 g/dL (12.2-16.2); Mean Corpuscular Hemoglobin 30.4 pg (28.0-32.0); Mean Corpuscular Hgb Conc. 31.9 g/dL (32.0-36.0); Monocytes # (auto) 0.2 uL; Neutrophils # (auto) 5.3 uL
[2018-09-22 12:25] LABS: Basophils % (auto) 1.8 % (0.0-2.0); Eosinophils % (auto) 0.1 % (0.0-7.0); Hematocrit 23.9 % (36.0-46.0); Lymphocytes # (auto) 0.9 uL; Mean Corpuscular Volume 95.3 fL (80.0-100.0); Monocytes % (auto) 2.6 % (0.0-12.0); Neutrophils % (auto) 81.5 % (37.0-80.0); Nucleated Red Blood Cells % 0.7 %; Platelet Count (auto) 449 10^3/uL (140-450); Red Blood Cells 2.51 10^6/uL (4.0-5.20); White Blood Cell 6.5 10^3/uL (4.4-10.8)
[2018-09-22 12:30] LABS: Red Cell Distribution Width 20.1 % (11.8-14.3)
[2018-09-22] MEDS ORDERED: PROMETHAZINE HCL 25 MG/ML 1ML IV PRN (12:30)
[2018-09-22 12:44] LABS: Albumin 4.1 g/dL (3.4-5.0); Calcium 9.8 mg/dL (8.5-10.1); Potassium 3.3 mmol/L (3.5-5.1)
[2018-09-22 12:49] LABS: Lactic Acid w/Reflex 6.5 mmol/L (0.4-2.0)
[2018-09-22 12:51] LABS: Bilirubin, Total 0.7 mg/dL (0.2-1.0); Total Protein 8.6 g/dL (6.4-8.2)
[2018-09-22 13:02] LABS: Magnesium 2.2 mg/dL (1.6-2.6)
[2018-09-22 13:18] LABS: INR 0.92 (0.9-1.15); Partial Thromboplastin Time 26.8 sec (23.78-33.04); Prothrombin Time 9.9 sec (9.27-12.13)
[2018-09-22] MEDS ORDERED: metroNIDAZOLE 500MG/100ML 100 ML IV ONE (15:00)
[2018-09-22] MEDS ORDERED: cefTRIAXone 1GM/50ML D5W 50 ML IV ONE (15:00)
[2018-09-22] MEDS ORDERED: FAMOTIDINE (10MG/ML) 2ML VL IV ONE (15:45)
[2018-09-22] MEDS ORDERED: ALBUTEROL SULF 2.5 MG/0.5ML(0.5%) NEB SOLN NEB PRN (15:45)
[2018-09-22] MEDS ORDERED: MORPHINE SULF INJ 2 MG/ML SYRINGE 1ML IV PRN (15:45)
[2018-09-22] MEDS ORDERED: NITROGLYCERIN 0.4 MG SL TAB SL PRN (15:45)
[2018-09-22] MEDS ORDERED: LORazepam 2MG/ML-1ML VIAL IV PRN (15:45)
[2018-09-22] MEDS: SOD CHL 0.9%/ KCL 20MEQ 1,000 ML IV SCH (15:45)
[2018-09-22] MEDS: GOLYTELY 4L KIT PO ONE (16:15)
[2018-09-22] MEDS: MORPHINE SULF INJ 2 MG/ML SYRINGE 1ML IV PRN ×2 (16:51→21:03)
[2018-09-22] MEDS: ONDANSETRON HCL 4 MG/2 ML VIAL IV PRN ×2 (16:51→22:59)
[2018-09-22 17:28] VITALS: BP 138/88
[2018-09-22 17:58] LABS: Urine Bacteria NONE SEEN /hpf (None Seen); Urine Blood Negative /uL (Negative); Urine Hyaline Cast FEW /lpf (0 - 2); Urine Specific Gravity 1.012 (1.001-1.035); Urine WBC 1 /hpf (0 - 5)
--- NOTE | 2018-09-22 18:03 | NUR ---
PATIENT RECEIVED FROM ER WITH NO SBAR
--- NOTE | 2018-09-22 18:09 | NUR ---
Respiratory note: ASSESSED FOR PRN MED NEB TX. PT PRESENTING NO RESPIRATORY DISTRESS AT THIS TIME. HR 68, SPO2 92%, ON ROOM AIR, RR 16, BS DIMINISHED. PT AWARE TO HAVE RN PAGE RT IF MED NEB TX IS NEEDED, WILL CONTINUE TO MONITOR.
[2018-09-22] MEDS ORDERED: LISI-646 PO (18:52)
--- NOTE | 2018-09-22 19:38 | NUR ---
OPENING NOTES RECEIVED REPORT FROM DAY SHIFT NURSE. PT A/O X4 WITH NO S/S OF DISTRESS BUT SLIGHT ABD PAIN AND NAUSEA. PT IS STABLE WITH NO S/S OF SOB. BED IS IN LOWEST POSITION WITH SIDE RAILS UP X 2. BED BRAKES ARE LOCKED AND CALL LIGHT IS WITH IN REACH. HOB IS 30 DEGREES. DISCUSSED POC WITH PATIENT AND PT VERBALIZED UNDERSTANDING.
--- NOTE | 2018-09-22 20:48 | NUR ---
COOLING MEASURES COOLING MEASURES INITIATED FOR TEMP OF 100.0.
--- NOTE | 2018-09-22 21:32 | NUR ---
ORDER CLARIFICATION MEDICATION PROMETHAZINE HELD NEEDS ORDER CLARIFICATION FROM MD. 2 PRN MED WITH SAME INDICATION.
--- NOTE | 2018-09-22 21:41 | NUR ---
RECHECK TEMP TEMPERATURE RECHECKED. 99.1 DEGREES WILL CONTINUE COOLING MEASURES.
[2018-09-22] MEDS: metroNIDAZOLE 500MG/100ML 100 ML IV SCH (21:43)
[2018-09-22 22:00] VITALS: BP 145/82
[2018-09-22] MEDS ORDERED: FAMOTIDINE (10MG/ML) 2ML VL IV SCH (22:00)
[2018-09-22] MEDS ORDERED: PANTOPRAZOLE 40 MG/10 ML VIAL INJ IV SCH (22:00)
--- NOTE | 2018-09-22 23:51 | NUR ---
VOMITING PT CONTINUES TO VOMIT GOLYTELY AFTER ZOFRAN IS GIVEN. PT CLAIMS UNABLE TO KEEP IT DOWN.
[2018-09-23] VITALS (17 sets, daily range): BP systolic 134–163; BP diastolic 66–103
[2018-09-23] MEDS: MORPHINE SULF INJ 2 MG/ML SYRINGE 1ML IV PRN ×4 (01:17→21:05)
[2018-09-23] MEDS: SOD CHL 0.9%/ KCL 20MEQ 1,000 ML IV SCH ×4 (04:42→13:15)
[2018-09-23] MEDS: ONDANSETRON HCL 4 MG/2 ML VIAL IV PRN ×2 (05:04→11:48)
[2018-09-23] MEDS: metroNIDAZOLE 500MG/100ML 100 ML IV SCH ×3 (05:30→21:04)
[2018-09-23] MEDS ORDERED: GOLYTELY 4L KIT PO ONE (06:00)
--- NOTE | 2018-09-23 06:50 | NUR ---
closing notes endorsed care to day shift nurseWilian.
[2018-09-23 06:56] LABS: Eosinophils # (auto) 0 uL; Nucleated Red Blood Cells % 0.3 %
[2018-09-23 06:59] LABS: Basophils # (auto) 0 uL; Basophils % (auto) 0.5 % (0.0-2.0); Hematocrit 20.3 % (36.0-46.0); Lymphocytes # (auto) 1.3 uL; Lymphocytes % (auto) 17.9 % (10.0-50.0); Mean Corpuscular Hemoglobin 29.9 pg (28.0-32.0); Mean Corpuscular Hgb Conc. 32.4 g/dL (32.0-36.0); Mean Corpuscular Volume 92.2 fL (80.0-100.0); Monocytes # (auto) 0.5 uL; Monocytes % (auto) 7.3 % (0.0-12.0); Neutrophils # (auto) 5.5 uL; Neutrophils % (auto) 74.3 % (37.0-80.0); Platelet Count (auto) 390 10^3/uL (140-450); Red Blood Cells 2.21 10^6/uL (4.0-5.20); Red Cell Distribution Width 19.8 % (11.8-14.3); White Blood Cell 7.4 10^3/uL (4.4-10.8)
[2018-09-23 07:11] LABS: Calcium 8.4 mg/dL (8.5-10.1); Potassium 3.1 mmol/L (3.5-5.1)
[2018-09-23 07:14] LABS: BUN/Creatinine Ratio 3.8
[2018-09-23 07:17] LABS: Hemoglobin 6.6 g/dL (12.2-16.2)
[2018-09-23 07:20] LABS: % Iron Saturation 5.8 % (15-50)
--- NOTE | 2018-09-23 07:38 | NUR ---
Respiratory note: ASSESSED PT FOR PRN MEDNEB TX. HR 82, RR 18, POX 93% ON ROOM AIR. BREATH SOUNDS CLEAR THROUGHOUT. NO S/S OF RESPIRATORY DISTRESS. MEDNEB TX NOT INDICATED AT THIS TIME. ADVISED PT TO CALL FOR RT IF SHE BEGINS FEELING SOB.
--- NOTE | 2018-09-23 08:00 | NUR ---
paged hospital list for critical value of hgb of 6.5. waiting for orders
[2018-09-23] MEDS ORDERED: SODIUM CHLORIDE LOCK 0 ML ONE (08:34)
[2018-09-23] MEDS ORDERED: diphenhdrAMINE HCL 50 MG/1 ML VL ONE (08:35)
[2018-09-23] MEDS ORDERED: LIDOCAINE VISCOUS 2% 15ML UD ONE (08:35)
[2018-09-23] MEDS ORDERED: fentaNYL CITRATE 100 MCG/2 ML VL ONE (08:35)
[2018-09-23] MEDS ORDERED: MIDAZOLAM HCL 5 MG/ML-1ML VIAL ONE (08:35)
[2018-09-23] MEDS: cefTRIAXone 1GM/50ML D5W 50 ML IV SCH (09:35)
[2018-09-23] MEDS: PANTOPRAZOLE 40 MG TAB PO SCH ×2 (09:35→21:04)
--- NOTE | 2018-09-23 10:00 | NUR ---
paged hospital list again for critical value of hgb 6.5
[2018-09-23] MEDS ORDERED: BUPR150T6 (10:05)
[2018-09-23] MEDS ORDERED: ARIP1TAB12 (10:05)
[2018-09-23] MEDS ORDERED: GABA800T97 (10:05)
--- NOTE | 2018-09-23 11:30 | NUR ---
Midline Placement: Patient educated on need for midline placement. All risks and benefits explained and all questions and concerns addresses prior to procedure. 18g/10cm midline inserted via left brachial vein using Ultrasound. Sterile technique utilized. Blood return obtained from the lumen and flushed easily with NS using proper technique. Midline secured with saline lock; biodisc and occlusive dressing applied. Primary RN notified. Midline lot # [id number]. x1 attempt
[2018-09-23] MEDS ORDERED: DEXTROSE (50%) 50ML SYRG IV PRN (13:30)
[2018-09-23] MEDS ORDERED: hydrALAZINE HCL 20 MG/ML VL IV PRN (13:30)
[2018-09-23] MEDS: PROMETHAZINE HCL 25 MG/ML 1ML IV PRN ×2 (15:19→20:04)
[2018-09-23] MEDS: InsuLIN REG 1unit/0.01ml Soln (100units/ml) SC SCH ×2 (17:00→21:21)
[2018-09-23] MEDS: ACCU-CHEK COMFORT CURVE STRIP VI SCH ×2 (17:05→21:20)
--- NOTE | 2018-09-23 19:53 | NUR ---
Respiratory note: ASSESSED PT FOR PRN MED NEB AT THIS TIME, PT DENIES SOB AT THIS TIME, NO RESP DISTRESS NOTED, NO TX INDICATED, PULSE OX 90% ON RA, HR 99, RR 18, BILATERAL BS CLEAR.
--- NOTE | 2018-09-23 20:00 | NUR ---
ROTH REMOVED PATIENT REQUESTED THAT HER ROTH BE REMOVED. SHE STATED THAT IS WAS MAKING IT HARD FOR HER TO GET UP AND DOWN AND HAVE BOWEL MOVEMENTS. PATIENT IS HAVING DIARRHEA FROM GOLYTELY TO PREPARE FOR AM COLONOSCOPY. IRA D/C'D WITH OUT INCIDENT. PATIENT TOLERATED WELL.
--- NOTE | 2018-09-23 21:10 | NUR ---
PATIENT VOIDED SPONTANEOUSLY AFTER ROTH D/C 50 ML OF YELLOW URINE VOIDED
--- NOTE | 2018-09-23 21:30 | NUR ---
TEMP 100.8 COOLING MEASURES AND PIGGYBACK TO HOSPITALIST TO GET TYLENOL INCASE NEEDED. NEW ORDER FOR TYLENOL 650 Q6 PO PRN RECEIVED.
[2018-09-23] MEDS ORDERED: ACETAMINOPHEN 325 MG TAB PO PRN (22:30)
--- NOTE | 2018-09-23 22:30 | NUR ---
TEMP 98.7/BACK TO NORMAL
[2018-09-23] MEDS: LORazepam 2MG/ML-1ML VIAL IV PRN (22:50)
--- NOTE | 2018-09-23 23:51 | NUR ---
OPENING SHIFT NOTE ASSUMED CARE OF PATIENT FROM DAY SHIFT SONIA MARQUEZ. PT A/O X4. PUPILS LG, DILATED, AND SLUGGISH TO LIGHT. PATIENT REPORTS PAIN 8/10 AND NAUSEA. WILL TRY NON-PHARM PAIN MEASURES AT THIS TIME, MORPHINE JUST GIVEN AT 1646. PHENERGAN GIVEN FOR NAUSEA. PATIENT INSTRUCTED ON POC AND TO CALL PRN. BED IS IN LOWEST POSITION, LOCKED, AND CALL LIGHT IS IN REACH CALL LIGHT. WILL CONTINUE TO MONITOR. Addendum: 09/24/18 at 0019 by GIULIANA BURROUGHS RN RN WRONG TIME. RIGHT TIME 1909
[2018-09-24] MEDS: PROMETHAZINE HCL 25 MG/ML 1ML IV PRN ×4 (00:20→19:50)
[2018-09-24] MEDS: MORPHINE SULF INJ 2 MG/ML SYRINGE 1ML IV PRN ×4 (01:09→19:50)
[2018-09-24] MEDS: SOD CHL 0.9%/ KCL 20MEQ 1,000 ML IV SCH ×2 (03:00→16:53)
[2018-09-24 05:00] VITALS: BP 159/86
[2018-09-24] MEDS: metroNIDAZOLE 500MG/100ML 100 ML IV SCH ×3 (05:37→21:25)
[2018-09-24 06:05] LABS: Basophils # (auto) 0.1 uL; Basophils % (auto) 1.4 % (0.0-2.0); Eosinophils # (auto) 0 uL; Eosinophils % (auto) 0.2 % (0.0-7.0); Hematocrit 29.6 % (36.0-46.0); Hemoglobin 9.8 g/dL (12.2-16.2); Lymphocytes # (auto) 1.7 uL; Lymphocytes % (auto) 22.5 % (10.0-50.0); Mean Corpuscular Hemoglobin 29.8 pg (28.0-32.0); Mean Corpuscular Hgb Conc. 33.1 g/dL (32.0-36.0); Mean Corpuscular Volume 89.9 fL (80.0-100.0); Monocytes # (auto) 0.4 uL; Monocytes % (auto) 5.9 % (0.0-12.0); Neutrophils # (auto) 5.2 uL; Nucleated Red Blood Cells % 0.2 %; Platelet Count (auto) 372 10^3/uL (140-450); Red Blood Cells 3.29 10^6/uL (4.0-5.20); Red Cell Distribution Width 18.7 % (11.8-14.3); White Blood Cell 7.5 10^3/uL (4.4-10.8)
[2018-09-24] MEDS: InsuLIN REG 1unit/0.01ml Soln (100units/ml) SC SCH ×4 (06:12→21:25)
[2018-09-24] MEDS: ACCU-CHEK COMFORT CURVE STRIP VI SCH ×4 (06:12→21:25)
[2018-09-24 06:33] LABS: Albumin 3.7 g/dL (3.4-5.0); BUN/Creatinine Ratio 3.1; Calcium 8.6 mg/dL (8.5-10.1); Magnesium 2.1 mg/dL (1.6-2.6)
[2018-09-24 06:46] LABS: Bilirubin, Total 0.9 mg/dL (0.2-1.0); Total Protein 7.4 g/dL (6.4-8.2)
[2018-09-24 06:56] LABS: Potassium 2.8 mmol/L (3.5-5.1)
--- NOTE | 2018-09-24 06:56 | NUR ---
HOSPITALIST PAGED/CRITICAL LAB POTASSIUM 2.8
--- NOTE | 2018-09-24 07:49 | NUR ---
CLOSING NOTE CARE TRANSFERRED TO DAY SHIFT SONIA WALLIS. BIMAL AWARE OF 2.8 POTASSIUM. WAITING FOR HOSPITALIST RETURN CALL. PATIENT IS CURRENTLY RUNNING 0.9 NACL/20 MEQ AT 80 ML/HR. PATIENT HAD GOLYTELY/DIARRHEA FOR AM COLONOSCOPY.
[2018-09-24 08:49] VITALS: BP 158/88
[2018-09-24] MEDS: PANTOPRAZOLE 40 MG TAB PO SCH ×2 (08:57→21:25)
[2018-09-24] MEDS: cefTRIAXone 1GM/50ML D5W 50 ML IV SCH (08:57)
--- NOTE | 2018-09-24 09:16 | NUR ---
PRE-OP WILL NOT TAKE PT DUE TO POTASSIUM OF 2.8. DR. DOMÍNGUEZ CALLED TO REPORT STATUS. CHARGE NURSE AWARE. WILL CONTINUE TO MONITOR.
--- NOTE | 2018-09-24 09:23 | NUR ---
PT ASSESSED FOR PRN HHN TX. PT IS ON ROOM AIR, SPO2 98%, HR 88, RR 16. NO S/S OF RESPIRATORY DISTRESS. LUNGS ARE CLEAR T/O. PT AWARE TO HAVE RT PAGED IF TX INDICATED. WILL CONTINUE TO MONITOR.
[2018-09-24] MEDS: POTASSIUM CHL 20MEQ/100ML 100 ML IV SCH ×2 (09:33→12:08)
--- NOTE | 2018-09-24 12:51 | NUR ---
K-RIDER ORDERED PER LOW POTASSIUM LEVEL. SECOND K-RIDER INFUSING AT THIS TIME. PATIENT TOLERATING WELL. POTASSIUM LAB ORDERED PER DR. GARCIA FOR 1300. WILL CONTINUE TO MONITOR.
--- NOTE | 2018-09-24 13:47 | NUR ---
PER DR. GARCIA. PATIENT OK TO HAVE PROCEDURE NOW. PATIENT TAKEN TO PRE-OP AT THIS MOMENT. PRE-OP RN AT BEDSIDE.
[2018-09-24] MEDS ORDERED: SODIUM CHLORIDE LOCK 10 ML ONE ×2 (13:49→15:10)
[2018-09-24] MEDS ORDERED: diphenhdrAMINE HCL 50 MG/1 ML VL ONE (13:50)
[2018-09-24] MEDS ORDERED: LIDOCAINE VISCOUS 2% 15ML UD ONE (13:52)
[2018-09-24 14:08] VITALS: BP 166/96
[2018-09-24] MEDS: MIDAZOLAM HCL 5 MG/ML-1ML VIAL ONE ×2 (14:33→14:37)
[2018-09-24] MEDS: fentaNYL CITRATE 100 MCG/2 ML VL ONE ×2 (14:33→14:37)
[2018-09-24] MEDS ORDERED: MIDAZOLAM HCL 1MG/1ML-2 ML VIAL ONE (15:10)
[2018-09-24] MEDS ORDERED: ONDANSETRON HCL 4 MG/2 ML VIAL ONE (15:10)
[2018-09-24] MEDS ORDERED: PROPOFOL 10 MG/ML 20 ML IV ONE (15:10)
[2018-09-24] MEDS ORDERED: ONDANSETRON HCL 4 MG/2 ML VIAL IV ONE (15:10)
[2018-09-24] MEDS ORDERED: fentaNYL CITRATE 100 MCG/2 ML VL ONE (15:10)
[2018-09-24] MEDS ORDERED: fentaNYL CITRATE 100 MCG/2 ML VL IV ONE (16:00)
[2018-09-24] MEDS ORDERED: METOCLOPRAMIDE HCL 5MG/ml INJ 2ml VIAL IV ONE (16:00)
--- NOTE | 2018-09-24 16:25 | NUR ---
REPORT RECEIVED FROM SONIA GASTON. PT TRANSPORTED TO ROOM FROM PACU. PATIENT ALERT, AWAKE, ORIENTED. DENIES DISCOMFORT. V/S: 99.5; 83; 17; 98% ON ROOM AIR; 135/88
[2018-09-24] MEDS: SUCRALFATE 1 GM/10 ML ORAL SUSP PO SCH ×2 (16:53→21:25)
--- NOTE | 2018-09-24 19:00 | NUR ---
OPENING NOTE Received report from day shift RN. Patient is A&O X's 4 with no s/s of distress noted. Patient reports abdominal pain 12/01. Educated patient on pain medication and pain management at this time. Will medicate as ordered. Educated patient on POC and to use call light when in need of assistance. Patient verbalized understanding. Bed is in lowest/locked position with side rails up X's 2 and call light is within reach of patient. Will continue to monitor for changes and round hourly/PRN.
--- NOTE | 2018-09-24 19:15 | NUR ---
PT ASSESSED, [place] TX NOT INDICATED AT THIS TIME. SAT 98% ON RA, NO SOB
[2018-09-24 22:00] VITALS: BP 153/96
[2018-09-24] MEDS: LORazepam 2MG/ML-1ML VIAL IV PRN (22:32)
--- NOTE | 2018-09-25 | NUR ---
ROUNDS Patient was provided with hygiene items and items to give self a sponge bath. Patient tolerated bed bath well.
[2018-09-25] MEDS: PROMETHAZINE HCL 25 MG/ML 1ML IV PRN ×5 (00:36→20:00)
[2018-09-25] MEDS: MORPHINE SULF INJ 2 MG/ML SYRINGE 1ML IV PRN ×3 (00:37→10:43)
[2018-09-25] MEDS: SOD CHL 0.9%/ KCL 20MEQ 1,000 ML IV SCH ×2 (04:18→10:43)
[2018-09-25 04:55] VITALS: BP 158/116
[2018-09-25 05:40] LABS: Hematocrit 29.6 % (36.0-46.0); Hemoglobin 9.6 g/dL (12.2-16.2)
[2018-09-25 06:00] LABS: Calcium 8.4 mg/dL (8.5-10.1)
[2018-09-25 06:03] LABS: BUN/Creatinine Ratio 6.3
[2018-09-25] MEDS: SUCRALFATE 1 GM/10 ML ORAL SUSP PO SCH ×4 (06:09→22:05)
[2018-09-25] MEDS: metroNIDAZOLE 500MG/100ML 100 ML IV SCH ×3 (06:09→22:05)
[2018-09-25] MEDS: ACCU-CHEK COMFORT CURVE STRIP VI SCH ×4 (06:14→22:36)
[2018-09-25] MEDS: InsuLIN REG 1unit/0.01ml Soln (100units/ml) SC SCH ×4 (06:14→22:36)
--- NOTE | 2018-09-25 07:25 | NUR ---
PATIENT IN LOW FOWLERS, EFFORTLESS BREATHING ON ROOM AIR. O2SAT:97% REPORTS ABDOMINAL DISCOMFORT TO EPIGASTRIC AREA. IV PATENT AND INFUSING WELL TO HELIO MIDLINE CATHETER. BED IN LOWEST POSITION, CALL LIGHT WITHIN REACH. WILL CONTINUE TO MONITOR.
[2018-09-25 08:51] VITALS: BP 157/89
[2018-09-25] MEDS: cefTRIAXone 1GM/50ML D5W 50 ML IV SCH (09:02)
[2018-09-25] MEDS: PANTOPRAZOLE 40 MG TAB PO SCH ×2 (09:02→22:04)
--- NOTE | 2018-09-25 10:05 | NUR ---
Respiratory note: PT ASSESSED FOR PRN MEDNEB TX. TX NOT INDICATED AT THIS TIME. SPO2 97% ON RA HR 99 RR 16 B/S CLEAR. PT AWARE TO HAVE RT PAGED IF THEY BECOME SOB.
--- NOTE | 2018-09-25 11:06 | NUR ---
RECEIVED CALL FROM TELE MONITOR, PATIENT IN SIN[place] TACHY, EVALUATED PATIENT, PATIENT REPORTS HAVING HAD GONE TO RESTROMM. PATIENT IS ASYMPTOMATIC, DENIES CHEST PAIN, PALPITATION, PRESSURE, SOB. BED IN LOWEST POSITION, CALL LIGHT WITHIN REACH.
[2018-09-25 13:12] VITALS: BP 147/89
--- NOTE | 2018-09-25 13:50 | NUR ---
DR. JOSE GALINDO GI CLEARANCE STATUS. PER DR. DOMÍNGUEZ
[2018-09-25] MEDS ORDERED: LISINOPRIL 20 MG TAB PO ONE (14:30)
[2018-09-25] MEDS ORDERED: POTASSIUM CHL 20 Meq TABLET PO ONE (14:30)
--- NOTE | 2018-09-25 14:40 | NUR ---
PATIENT TO STAY AT LEAST ONE MORE NIGHT. PER MD DOMÍNGUEZ
[2018-09-25] MEDS: HYOSCYAMINE SULF 0.125 MG ODT TAB PO PRN ×2 (15:08→20:01)
[2018-09-25 17:17] VITALS: BP 133/90
--- NOTE | 2018-09-25 18:46 | NUR ---
Respiratory note: NO PRN TX GIVEN AT THIS TIME, NOT INDICATED. PT AWAKE AND ALERT, DENIES ANY NEEDS AT THIS TIME. SPO2 94% ON RA, HR 93, RR 16.
--- NOTE | 2018-09-25 19:25 | NUR ---
Opening shift note: Assumed care from day nurse. Patient is alert and oriented x 4. No s/s of distress or sob. Patient was instructed on poc and to call for assistance as need. Patient verbalized understanding. Bed is locked and in lowest position with call light in reach.
[2018-09-25 20:35] VITALS: BP 133/90
[2018-09-25] MEDS ORDERED: HYDROcodone-ACET 5/325MG TAB PO ONE (21:45)
[2018-09-25 22:03] VITALS: BP 158/79
--- NOTE | 2018-09-25 22:53 | NUR ---
Pain medication Spoke to hospitalist Henrietta Jasso about patient's pain. Hospitalist order a one time dose of [place]. See eMAR. Addendum: 09/25/18 at 2257 by Maria Luisa Fisher RN enter wrong time. Time was for 2139
[2018-09-26] MEDS: HYOSCYAMINE SULF 0.125 MG ODT TAB PO PRN ×3 (00:24→10:36)
[2018-09-26] MEDS: PROMETHAZINE HCL 25 MG/ML 1ML IV PRN ×3 (00:24→10:35)
[2018-09-26] MEDS: LORazepam 2MG/ML-1ML VIAL IV PRN (00:49)
[2018-09-26 05:35] VITALS: BP 163/97
[2018-09-26] MEDS: ACCU-CHEK COMFORT CURVE STRIP VI SCH ×2 (06:00→11:30)
[2018-09-26] MEDS: InsuLIN REG 1unit/0.01ml Soln (100units/ml) SC SCH ×2 (06:01→11:30)
[2018-09-26] MEDS: metroNIDAZOLE 500MG/100ML 100 ML IV SCH ×2 (06:20→14:00)
[2018-09-26] MEDS: SUCRALFATE 1 GM/10 ML ORAL SUSP PO SCH ×2 (07:03→11:30)
--- NOTE | 2018-09-26 07:30 | NUR ---
Opening Shift Note Assumed care of patient, awake, alert, and oriented x4. No S/S of distress/SOB, but patient reports pain in right upper abdomen of 8/10. Midline in left upper arm asymptomatic, patent, intact, and saline locked. Bed locked and in lowest position and call light is within reach. Instructed on POC and to call for assist PRN, and patient verbalized understanding. Will continue to monitor for changes Q1hr and PRN.
[2018-09-26 07:32] LABS: Basophils # (auto) 0.1 uL; Basophils % (auto) 1.5 % (0.0-2.0); Eosinophils # (auto) 0.2 uL; Eosinophils % (auto) 2.8 % (0.0-7.0); Hematocrit 32.8 % (36.0-46.0); Hemoglobin 10.4 g/dL (12.2-16.2); Lymphocytes # (auto) 1.7 uL; Lymphocytes % (auto) 23.9 % (10.0-50.0); Mean Corpuscular Hemoglobin 28.3 pg (28.0-32.0); Mean Corpuscular Hgb Conc. 31.8 g/dL (32.0-36.0); Mean Corpuscular Volume 89.1 fL (80.0-100.0); Monocytes # (auto) 0.5 uL; Monocytes % (auto) 6.8 % (0.0-12.0); Neutrophils # (auto) 4.6 uL; Nucleated Red Blood Cells % 0.2 %; Platelet Count (auto) 363 10^3/uL (140-450); Red Blood Cells 3.68 10^6/uL (4.0-5.20); Red Cell Distribution Width 18.5 % (11.8-14.3); White Blood Cell 7.1 10^3/uL (4.4-10.8)
[2018-09-26 07:50] LABS: Calcium 8.7 mg/dL (8.5-10.1); Magnesium 2.4 mg/dL (1.6-2.6); Potassium 3.2 mmol/L (3.5-5.1)
[2018-09-26 07:53] LABS: BUN/Creatinine Ratio 10.6
[2018-09-26] MEDS: cefTRIAXone 1GM/50ML D5W 50 ML IV SCH (08:53)
[2018-09-26 09:03] VITALS: BP 144/76
[2018-09-26] MEDS ORDERED: LISINOPRIL 20 MG TAB PO SCH (10:00)
--- NOTE | 2018-09-26 10:00 | NUR ---
Dr. Wyatt at bedside. New orders received.
[2018-09-26] MEDS ORDERED: POTASSIUM CHL 20 Meq TABLET PO ONE (10:15)
[2018-09-26] MEDS: PANTOPRAZOLE 40 MG TAB PO SCH (10:27)
[2018-09-26] MEDS ORDERED: LEVO500T21 PO (11:11)
[2018-09-26] MEDS ORDERED: SUCR1SUS10 PO (11:11)
[2018-09-26] MEDS ORDERED: METR500T PO (11:11)
[2018-09-26] MEDS ORDERED: PANT40TA2 PO (11:11)
--- NOTE | 2018-09-26 12:00 | NUR ---
Discharge instructions given as ordered. Encourage to follow up with PMD as instructed. All questions and concerns addressed. Patient verbalized understanding. Medication reconciliation form completed and copy given to patient. IV removed with catheter intact, pressure dressing applied. Telemetry unit returned to [facility].
--- NOTE | 2018-09-26 12:55 | NUR ---
Respiratory note: ASSESSED PT FOR PRN MEDNEB TX. HR 99, RR 16, POX 97% ON ROOM AIR. BREATH SOUNDS CLEAR/DIMINISHED THROUGHOUT. PT STATES HER BREATHING IS FEELING OKAY. MEDNEB TX NOT INDICATED AT THIS TIME. ADVISED PT TO CALL FOR RT IF SHE FEELS SOB.
--- NOTE | 2018-09-26 13:00 | NUR ---
Patient taken to vehicle via wheelchair with all personal belongings, accompanied by staff and family member. No distress noted at time of departure.
[2018-09-27 16:16] VITALS: BP 143/85
== END 2018-09-26 13:30 | disposition home or self-care (01) | DRG 377 ==
LOC: ER 11:04 → TELE 15:51 → TELE-WESTW 17:46
PROVIDERS: ADMIT Internal Medicine; ATTEND Internal Medicine
PROC: 30233N1 Transfusion of Nonautologous Red Blood Cells into Peripheral Vein, Percutaneous Approach (ICD-10-PCS; 2018-09-23)
PROC: 0DJ08ZZ Inspection of Upper Intestinal Tract, Via Natural or Artificial Opening Endoscopic (ICD-10-PCS; principal; 2018-09-24 14:30)
PROC: 0DJD8ZZ Inspection of Lower Intestinal Tract, Via Natural or Artificial Opening Endoscopic (ICD-10-PCS; 2018-09-24 14:30)
DX: K29.61 Other gastritis with bleeding (principal); N17.0 Acute kidney failure with tubular necrosis; F11.20 Opioid dependence, uncomplicated; K29.81 Duodenitis with bleeding; K64.8 Other hemorrhoids; E78.5 Hyperlipidemia, unspecified; E66.01 Morbid (severe) obesity due to excess calories; E11.9 Type 2 diabetes mellitus without complications; E87.6 Hypokalemia; F41.9 Anxiety disorder, unspecified; G89.29 Other chronic pain; I10 Essential (primary) hypertension; K27.9 Peptic ulcer, site unspecified, unspecified as acute or chronic, without hemorrhage or perforation; J45.909 Unspecified asthma, uncomplicated; K52.9 Noninfective gastroenteritis and colitis, unspecified; F32.9 Major depressive disorder, single episode, unspecified; D50.9 Iron deficiency anemia, unspecified; M79.7 Fibromyalgia; Z90.49 Acquired absence of other specified parts of digestive tract; Z68.37 Body mass index [BMI] 37.0-37.9, adult
CPT/HCPCS: 36415; 71045; 74176; 80048; 80053; 81001; 82150; 82607; 82962; 83540; 83550; 83605; 83690; 83735; 84132; 84702; 85014; 85018; 85025; 85610; 85652; 85730; 86850; 86900; 86901; 86920; 87040; 87045; 87081; 87899; 93005; 94761; 96361; 96365; 96368; 96375; A6257; C9113; G0378; J0696; J2250; J2405; J2704; J3480; J3490

== ENCOUNTER 2018-10-18 21:21 | Inpatient (IN) | payer BC ==
--- NOTE | 2018-10-14 23:48 | NUR ---
Patient stated that she saw her outside her door. I informed her that no visitors were on the unit at this time and that I had not seen anyone matching his description. Addendum: 10/21/18 at 0305 by KATYA RODRIGUEZ RN Wrong date. Disregard
[~2018-10-18] VITALS: Ht 162.6 cm; Wt 88.5 kg
[~2018-10-18 21:21] MED LIST changes: +ARIP10TA29; +BUPR150T6; -DULO1CAP3 PO; +GABA800T97 PO; +LEVO500T21 PO; +LISI-646 PO; +METR500T PO; +PANT40TA2 PO; +SUCR1SUS10 PO
[2018-10-18 22:17] LABS: Basophils # (auto) 0 uL; Basophils % (auto) 0.4 % (0.0-2.0); Eosinophils # (auto) 0.2 uL; Eosinophils % (auto) 1.9 % (0.0-7.0); Hematocrit 37.5 % (36.0-46.0); Hemoglobin 12.1 g/dL (12.2-16.2); Lymphocytes # (auto) 2.3 uL; Lymphocytes % (auto) 26.7 % (10.0-50.0); Mean Corpuscular Hemoglobin 27.2 pg (28.0-32.0); Mean Corpuscular Hgb Conc. 32.4 g/dL (32.0-36.0); Monocytes # (auto) 0.6 uL; Monocytes % (auto) 6.6 % (0.0-12.0); Neutrophils # (auto) 5.5 uL; Neutrophils % (auto) 64.4 % (37.0-80.0); Platelet Count (auto) 356 10^3/uL (140-450); Red Blood Cells 4.46 10^6/uL (4.0-5.20); Red Cell Distribution Width 18.6 % (11.8-14.3); White Blood Cell 8.5 10^3/uL (4.4-10.8)
[2018-10-18 22:23] LABS: INR 0.98 (0.9-1.15); Partial Thromboplastin Time 27.3 sec (23.64-32.05)
[2018-10-18 22:26] LABS: Potassium 3.6 mmol/L (3.5-5.1)
[2018-10-18 22:32] LABS: Albumin 4.2 g/dL (3.4-5.0); BUN/Creatinine Ratio 7.4; Calcium 9.7 mg/dL (8.5-10.1)
[2018-10-18 22:34] LABS: Bilirubin, Total 0.6 mg/dL (0.2-1.0); Total Protein 8.1 g/dL (6.4-8.2)
[2018-10-19 00:20] LABS: Urine Bacteria FEW /hpf (None Seen); Urine Blood Negative /uL (Negative); Urine Mucus FEW (None Seen); Urine Specific Gravity 1.017 (1.001-1.035); Urine WBC 10 /hpf (0 - 5)
[2018-10-19] MEDS ORDERED: PROMETHAZINE HCL 25 MG/ML 1ML IM ONE (00:45)
[2018-10-19] MEDS ORDERED: HYDROmorphone HCL 2 MG/ML VL IV ONE ×2 (00:45→04:15)
[2018-10-19] MEDS ORDERED: SODIUM CHLORIDE 0.9% 1,000 ML IV ONE (00:45)
[2018-10-19] MEDS ORDERED: LEVOFLOXACIN 500MG 100 ML IV ONE (03:30)
[2018-10-19] MEDS ORDERED: metroNIDAZOLE 500MG/100ML 100 ML IV ONE (03:30)
[2018-10-19] MEDS ORDERED: ACETAMINOPHEN 500 MG TAB PO PRN (06:00)
[2018-10-19 07:21] LABS: Basophils # (auto) 0.1 uL; Basophils % (auto) 1.6 % (0.0-2.0); Eosinophils # (auto) 0.2 uL; Eosinophils % (auto) 1.9 % (0.0-7.0); Hematocrit 37.6 % (36.0-46.0); Hemoglobin 12.2 g/dL (12.2-16.2); Lymphocytes # (auto) 2.8 uL; Lymphocytes % (auto) 31.3 % (10.0-50.0); Mean Corpuscular Hemoglobin 27.4 pg (28.0-32.0); Mean Corpuscular Hgb Conc. 32.4 g/dL (32.0-36.0); Mean Corpuscular Volume 84.7 fL (80.0-100.0); Monocytes # (auto) 0.5 uL; Monocytes % (auto) 5.2 % (0.0-12.0); Neutrophils # (auto) 5.3 uL; Nucleated Red Blood Cells % 0.1 %; Platelet Count (auto) 322 10^3/uL (140-450); Red Blood Cells 4.44 10^6/uL (4.0-5.20); Red Cell Distribution Width 18.8 % (11.8-14.3); White Blood Cell 8.9 10^3/uL (4.4-10.8)
[2018-10-19 07:27] LABS: BUN/Creatinine Ratio 11.6; Calcium 9.4 mg/dL (8.5-10.1); Potassium 3.5 mmol/L (3.5-5.1)
[2018-10-19] MEDS ORDERED: DEXTROSE (50%) 50ML SYRG IV PRN (07:30)
[2018-10-19] MEDS: diphenhdrAMINE HCL 50 MG/1 ML VL IV PRN ×3 (07:42→20:18)
[2018-10-19] MEDS: SUCRALFATE 1 GM TAB PO SCH ×4 (07:42→21:44)
[2018-10-19 09:00] VITALS: BP 164/11
--- NOTE | 2018-10-19 09:30 | NUR ---
Admit to floor Patient was admitted to the floor. She is alert and oriented. She is c/o abdominal pain and blood clots in her stool. She c/o itchy skin and has Benadryl PRN ordered. She has areas to her arms and legs where she has been scratching but no open areas noted. She was oriented to the room, call light, and phone. She stated she had episodes of dizziness and where she felt a heaviness to her head when she got up. Then she felt like she was going to pass out so she would lay on the floor. She said there were times where she did pass out and her caught her. She has been placed on a bed alarm and the sap abap programmer was called to bring a BSC for the patient. Patient has an IV in the LFA, but reports that it is bothering her. She stated she is a very hard stick and generally IVs don't last very long. She said she thinks this IV is infiltrating. This nurse called the doctor and got an order for a midline.
[2018-10-19] MEDS ORDERED: PANTOPRAZOLE 40 MG/10 ML VIAL INJ IV SCH (10:00)
[2018-10-19] MEDS: LISINOPRIL 20 MG TAB PO SCH (10:39)
[2018-10-19] MEDS: ONDANSETRON HCL 4 MG/2 ML VIAL IV PRN ×3 (10:39→22:37)
[2018-10-19] MEDS: PANTOPRAZOLE 40 MG TAB PO SCH ×2 (10:40→21:44)
[2018-10-19] MEDS: MORPHINE SULF INJ 2 MG/ML SYRINGE 1ML IV PRN ×3 (10:41→22:37)
[2018-10-19] MEDS: InsuLIN REG 1unit/0.01ml Soln (100units/ml) SC SCH ×3 (11:47→23:54)
[2018-10-19] MEDS: ACCU-CHEK COMFORT CURVE STRIP VI SCH ×3 (11:47→23:54)
[2018-10-19 12:00] VITALS: BP 153/95
[2018-10-19] MEDS: SODIUM CHLORIDE 0.9% 1,000 ML IV SCH (12:43)
[2018-10-19] MEDS ORDERED: CLON1TAB PO (12:51)
[2018-10-19 13:00] VITALS: BP 153/95
--- NOTE | 2018-10-19 13:27 | NUR ---
Midline insertion. 3Fr 20 cm Midline IV catheter inserted into the left basilic vein. Stat-Lock, Bio-patch and clear sterile dressing applied. Lot# [id number]. Patient tolerated well. Nurse notified.
--- NOTE | 2018-10-19 14:52 | NUR ---
MONITOR AND CHART BMs Per Dr. Dinero, we are to monitor all BMs and chart the color and consistency. Patient stated she had bloody stool prior to admission.
[2018-10-19] MEDS: hydrALAZINE HCL 20 MG/ML VL IV PRN (16:35)
--- NOTE | 2018-10-19 16:50 | NUR ---
PATIENT CONCERNS/CM PATIENT IS CONCERNED ABOUT BLEEDING. SHE SHOWED THIS NURSE PICTURES OF STOOL WITH BLOOD IN IT THAT WERE TAKEN LAST NIGHT. SHE SAID HER IS CONCERNED WELL. IT WAS EXPLAINED THAT WE ARE MONITORING HER STOOL FOR BLEEDING WELL MONITORING HER LABS WHICH WILL SHOW IF THERE IS ANY ACTIVE BLEEDING WELL. SHE HAD AN EGD AND COLONOSCOPY THIS MONTH (PER MD REPORTS) SO DR. GARCIA DID NOT ORDER ANY PROCEDURES THIS VISIT. SHE PREVIOUSLY HAD INTERNAL HEMORRHOIDS, BUT PATIENT SAID SHE FEELS A SHARP STABBING, ACHING, CRAMPING FEELING IN HER UPPER ABDOMEN. AN OUTPATIENT CAPSULE ENDOSCOPY WAS RECOMMENDED (PER NOTES). PATIENT AND REQUESTED TO SPEAK WITH LABEL STAMPER, BUT THEY HAVE ALL GONE HOME FOR THE NIGHT. SHE WAS INSTRUCTED TO TALK WITH JOSE DANIEL TOMORROW AFTER 8 AM.
[2018-10-19 17:00] VITALS: BP 169/105
[2018-10-19] MEDS: LORazepam 0.5 MG TAB PO PRN (18:18)
--- NOTE | 2018-10-19 18:18 | NUR ---
DIET/ABD PAIN/STOOL PATIENT REQUESTED A CLEAR LIQUID DIET EARLIER AND DR. GARCIA APPROVED THIS ORDER. PATIENT STILL C/O ABD. PAIN AND VOMITING BUT CONTINUES TO REQUEST MORE FLUIDS. SHE WAS ADVISED TO EAT THE JELLO SLOWLY. SHE RECEIVED A ROOM TRAY FOR DINNER AND REQUESTED A SECOND BOWL OF BROTH DESPITE ABDOMINAL PAIN AND NAUSEA. SHE WAS GIVEN ATIVAN DUE TO RESTLESSNESS AND ROCKING. UNABLE TO GIVE ANYTHING ELSE AT THIS TIME. PATIENT HAS NOT HAD A BOWEL MOVEMENT TODAY. SHE WAS NOTIFIED TO LET STAFF SEE IF SHE HAS A BM. SHE REQUESTED A STOOL SOFTENER EARLIER BUT WAS ADVISED THAT MAY MAKE THE PAIN AND NAUSEA WORSE. THIS NURSE CRUSHED THE SUCRALFATE AND ATIVAN AND MIXED THEM WITH HER JELLO SHE THREW UP THE TABLET EARLIER TODAY.
--- NOTE | 2018-10-19 19:24 | NUR ---
Opening Shift Note Assumed care of patient, awake and alert x 4. No S/S of distress/SOB. NS infusing at 60 mls/hr per MD order. Bed is in lowest position and locked. Call light within reach. Board updated. Instructed on POC and to call for assist PRN, will continue to monitor for changes Q1hr and PRN.
[2018-10-19] MEDS: ZOLPIDEM TARTRATE 5 MG TAB PO PRN (21:44)
[2018-10-19 22:00] VITALS: BP 139/81
--- NOTE | 2018-10-19 23:45 | NUR ---
Patient had one small green, liquid stool with no evidence of blood. Stool occult blood sample sent.
--- NOTE | 2018-10-20 00:14 | NUR ---
Paging hospitalist because patient is having nausea despite receiving Zofran. According to patient the only thing that helps her nausea is Phenergan but patient only received that once as an IM dose, 25 mg. Requesting to DC Zofran since it does not work and add Phenergan IV instead.
--- NOTE | 2018-10-20 02:17 | NUR ---
Spoke to EVONNE Jasso who ordered Phenergan 12.5 mg IV push q 4 hrs PRN nausea and vomiting, discontinue Zofran order. Order repeated, verified, and placed.
[2018-10-20] MEDS: diphenhdrAMINE HCL 50 MG/1 ML VL IV PRN ×4 (02:41→22:35)
[2018-10-20] MEDS: MORPHINE SULF INJ 2 MG/ML SYRINGE 1ML IV PRN ×6 (02:42→22:35)
[2018-10-20] MEDS: PROMETHAZINE HCL 25 MG/ML 1ML IV PRN ×6 (02:42→22:35)
[2018-10-20 05:43] VITALS: BP 142/87
[2018-10-20 05:59] LABS: Hematocrit 37.9 % (36.0-46.0); Hemoglobin 12.3 g/dL (12.2-16.2)
[2018-10-20] MEDS: InsuLIN REG 1unit/0.01ml Soln (100units/ml) SC SCH ×2 (06:00→11:38)
[2018-10-20 06:11] LABS: Calcium 9.3 mg/dL (8.5-10.1); Magnesium 1.9 mg/dL (1.6-2.6); Potassium 3.4 mmol/L (3.5-5.1)
[2018-10-20] MEDS: SODIUM CHLORIDE 0.9% 1,000 ML IV SCH ×2 (06:14→09:13)
[2018-10-20] MEDS: ACCU-CHEK COMFORT CURVE STRIP VI SCH ×2 (06:14→11:39)
[2018-10-20] MEDS: SUCRALFATE 1 GM TAB PO SCH ×2 (06:38→11:38)
[2018-10-20] MEDS: LORazepam 0.5 MG TAB PO PRN ×2 (07:33→19:47)
--- NOTE | 2018-10-20 08:00 | NUR ---
PATIENT STATES SHE CAN'T TOLERATE SOLID FOOD. SHE BECOMES VERY NAUSEATED. ONLY DRANK A LITTLE OF THE JUICE FOR BREAKFAST.
[2018-10-20 09:00] VITALS: BP 163/104
[2018-10-20] MEDS: PANTOPRAZOLE 40 MG TAB PO SCH ×2 (09:31→21:37)
[2018-10-20] MEDS: LISINOPRIL 20 MG TAB PO SCH (09:32)
[2018-10-20 13:00] VITALS: BP_SYST 134; BP_SYST 161; BP_DIAS 74; BP_DIAS 89
[2018-10-20] MEDS: HYOSCYAMINE SULF 0.125 MG ODT TAB PO PRN (13:18)
[2018-10-20] MEDS ORDERED: MAGNESIUM SULFATE 1GM/100ML 100 ML IV ONE (13:30)
[2018-10-20] MEDS ORDERED: POTASSIUM CHL 20 Meq TABLET PO ONE (13:30)
[2018-10-20] MEDS ORDERED: METOPROLOL TARTRATE 25 MG TAB PO ONE (13:45)
[2018-10-20 17:01] VITALS: BP 136/74
[2018-10-20] MEDS: SUCRALFATE 1 GM/10 ML ORAL SUSP PO SCH ×2 (17:19→21:37)
--- NOTE | 2018-10-20 19:29 | NUR ---
Opening Shift Note Assumed care of patient, awake and alert X 4. No S/S of distress/SOB. Bed is in lowest position and locked. Call light within reach. Board updated. Instructed on POC and to call for assist PRN, will continue to monitor for changes Q1hr and PRN.
[2018-10-20] MEDS: ZOLPIDEM TARTRATE 5 MG TAB PO PRN (21:37)
[2018-10-20] MEDS: METOPROLOL TARTRATE 25 MG TAB PO SCH (21:38)
[2018-10-20 22:00] VITALS: BP 144/97
--- NOTE | 2018-10-20 23:48 | NUR ---
Patient stated that she saw her outside her door. I informed her that no visitors were on the unit at this time and that I had not seen anyone matching his description.
--- NOTE | 2018-10-21 00:20 | NUR ---
Patient is acting erratically and has had periods of confusion, though patient is easily readjusted. Patient has not had very much sleep if any at all since at least last night. I told patient that she needs to stay in bed and try to go to sleep for her health. Patient agreed but moments later tried to walk out of her room and didn't know where she was going. Patient was easily readjusted to location and why she was in the hospital but asked again if she could have her pain medications. Patient has dropped or spilled her broth and ice multiple times in the past two hours saying that she has trouble getting the drink to her mouth. She appears dazed but is oriented x 4. Patient states she sleepwalks occasionally. Patient asked for pain medications again. Will continue to monitor.
--- NOTE | 2018-10-21 01:55 | NUR ---
Patient injured her right thumb on glass for tablet that she brought with her. Glass along the top of the screen was broken and patient states she cut herself. On assessment, I saw three small dots of blood on her thumb but no glass was seen imbedded in skin. I cleansed the wound with wound cleanser and covered with a bandaid. Picture taken of wound and wound consult will be placed. Addendum: 10/21/18 at 0457 by KATYA RODRIGUEZ RN Patient states that it was an accident and she didn't mean to "swipe the screen so hard."
--- NOTE | 2018-10-21 02:04 | NUR ---
Walked in again and found that patient had gotten the tablet computer out of her purse and was still playing on it despite having just cut her thumb on the glass. I told the patient in no uncertain terms that the tablet is dangerous with the broken screen and that she could easily cut herself again but patient laughed and said "no, it's okay. I'm not touching the broken part." Patient is oriented though acting erratically. I told her that she could injure herself again by continuing to play on it but she still wants to use it. Charge nurse notified.
[2018-10-21] MEDS: PROMETHAZINE HCL 25 MG/ML 1ML IV PRN ×5 (02:40→21:18)
[2018-10-21] MEDS: MORPHINE SULF INJ 2 MG/ML SYRINGE 1ML IV PRN ×3 (02:41→10:35)
--- NOTE | 2018-10-21 02:48 | NUR ---
Charge Nurse spoke to patient as well. Patient is convinced that Ambien is the cause of her acting erratically because her has told her that she does things similar to this when she takes Ambien at home. Patient did not tell me that she has had reactions like this prior to my giving her Ambien earlier in evening.
--- NOTE | 2018-10-21 02:52 | NUR ---
I advised patient that she should not take the Benadryl and Phenergan because both can worsen the sedative hypnotic side effects of the Ambien and could worsen the symptoms of mild delirium that she has been showing throughout the night. Patient became very upset at that and started arguing vigorously with both myself and the charge nurse that she was fine and that the symptoms of the Ambien were mild. Patient acknowledged why I wanted to hold those medications but she states that her neurotic dermatitis and the the itching from it will be much worse if she doesn't get it. The nausea she experiences regularly plus the itching is much worse than those symptoms, per patient. I will give medications so long as her symptoms do not worsen but will monitor closely and will not give medications if her behavior worsens and becomes dangerous.
--- NOTE | 2018-10-21 03:01 | NUR ---
Patient asked me to speak to her on the phone so that he can confirm that "she gets like this" when she does not sleep. I gave him a brief update on her condition after verifying the password including notifying him of the injury to her right thumb.
[2018-10-21] MEDS: diphenhdrAMINE HCL 50 MG/1 ML VL IV PRN ×4 (04:36→22:33)
[2018-10-21 05:25] VITALS: BP 146/80
[2018-10-21 05:47] LABS: Hematocrit 32.8 % (36.0-46.0); Hemoglobin 10.4 g/dL (12.2-16.2)
[2018-10-21 05:55] LABS: Magnesium 1.9 mg/dL (1.6-2.6); Potassium 3.7 mmol/L (3.5-5.1)
[2018-10-21] MEDS: SUCRALFATE 1 GM/10 ML ORAL SUSP PO SCH ×4 (06:37→22:32)
[2018-10-21] MEDS: hydrALAZINE HCL 20 MG/ML VL IV PRN (08:15)
--- NOTE | 2018-10-21 08:15 | NUR ---
BP =167/85, Heart Rate = 115. Apresoline IVP given for SBP>150 as ordered.
[2018-10-21 09:00] VITALS: BP 167/85
--- NOTE | 2018-10-21 09:15 | NUR ---
BP =126/73, Heart Rate = 130.
--- NOTE | 2018-10-21 10:00 | NUR ---
Patient ambulatory to the bathroom, had a bowel movement.
[2018-10-21] MEDS: METOPROLOL TARTRATE 25 MG TAB PO SCH ×2 (10:35→21:19)
[2018-10-21] MEDS: PANTOPRAZOLE 40 MG TAB PO SCH ×2 (10:35→21:19)
--- NOTE | 2018-10-21 10:35 | NUR ---
Explained to patient that Morphine, Benadryl and Phenergan given at the same time can cause sleepiness, lethargy. Patient insisted she had it before, she can tolerate it. Patient is complaining of severe stomach pain, nausea. Patient is ambulatory. Will continue to monitor the patient.
[2018-10-21] MEDS: LISINOPRIL 20 MG TAB PO SCH (10:36)
[2018-10-21] MEDS ORDERED: POTASSIUM CHL 20 Meq TABLET PO ONE (10:45)
[2018-10-21] MEDS ORDERED: MAGNESIUM SULFATE 1GM/100ML 100 ML IV ONE (10:45)
[2018-10-21] MEDS ORDERED: CITALOPRAM HYDROBR 20 MG TAB PO ONE (10:45)
--- NOTE | 2018-10-21 11:38 | NUR ---
Patient stated she has headache. Tylenol PO given as ordered.
--- NOTE | 2018-10-21 12:05 | NUR ---
Mere Cantu at bedside.
[2018-10-21 13:00] VITALS: BP 161/99
--- NOTE | 2018-10-21 13:00 | NUR ---
WOUND CARE NOTE: PATIENT OBTAINED A SMALL PARTIAL THICKNESS LACERATION TO THE RIGHT THUMB FROM HER IPAD DEVICE. WOUND WAS PHOTOGRAPHED FOR REFERENCE BY BEDSIDE NURSE FOR REFERENCE. RECOMMEND: DAILY DRESSING CHANGE WITH DARI SALINAS. NO FURTHER WOUND CARE MONITORING NEEDED AT THIS TIME.
--- NOTE | 2018-10-21 16:19 | NUR ---
Patient refused Hyoscyamine for stomach distress, stated she's in pain.
[2018-10-21 16:23] VITALS: BP 160/90
[2018-10-21] MEDS: KETOROLAC TROMETH 30 MG/ML 1ML VIAL IV PRN ×2 (16:26→22:33)
[2018-10-21] MEDS: GABAPENTIN 400 MG CAP PO SCH ×2 (16:26→22:32)
--- NOTE | 2018-10-21 16:26 | NUR ---
Patient stated she's in pain, nauseous, complained of itching. Toradol Inj given for pain, Phenergan IVP given for nausea. Explained to patient she's not due for Benadryl at this time.
--- NOTE | 2018-10-21 16:44 | NUR ---
Benadryl IVP given for itching as ordered.
--- NOTE | 2018-10-21 17:40 | NUR ---
BP = 126/93, Heart Rate = 117.
--- NOTE | 2018-10-21 20:00 | NUR ---
Opening Shift Note Assumed care of patient, awake and alert. No S/S of distress/SOB or pain. Instructed on POC and to call for assist PRN, will continue to monitor for changes Q1hr and PRN.
[2018-10-21] MEDS: clonazePAM 0.5 MG TAB PO PRN (21:19)
[2018-10-21] MEDS: ZOLPIDEM TARTRATE 5 MG TAB PO PRN (21:45)
[2018-10-21 22:00] VITALS: BP 145/77
[2018-10-22] MEDS: PROMETHAZINE HCL 25 MG/ML 1ML IV PRN ×5 (03:11→23:47)
[2018-10-22 05:00] VITALS: BP 132/77
[2018-10-22] MEDS: diphenhdrAMINE HCL 50 MG/1 ML VL IV PRN ×4 (05:11→23:30)
[2018-10-22] MEDS: KETOROLAC TROMETH 30 MG/ML 1ML VIAL IV PRN ×4 (05:11→23:30)
[2018-10-22] MEDS: GABAPENTIN 400 MG CAP PO SCH ×3 (06:03→21:38)
[2018-10-22] MEDS: SUCRALFATE 1 GM/10 ML ORAL SUSP PO SCH ×4 (06:03→21:38)
--- NOTE | 2018-10-22 07:30 | NUR ---
Report given to Isidra Billings to assume cre, patient is resting no distress.
[2018-10-22 08:00] VITALS: BP 141/82
[2018-10-22 10:38] LABS: Hematocrit 34.8 % (36.0-46.0); Hemoglobin 11.5 g/dL (12.2-16.2)
[2018-10-22] MEDS: HYOSCYAMINE SULF 0.125 MG ODT TAB PO PRN ×2 (10:52→18:12)
[2018-10-22] MEDS: PANTOPRAZOLE 40 MG TAB PO SCH ×2 (10:52→21:39)
[2018-10-22] MEDS: CITALOPRAM HYDROBR 20 MG TAB PO SCH (10:53)
[2018-10-22] MEDS: LISINOPRIL 20 MG TAB PO SCH (10:53)
[2018-10-22] MEDS: METOPROLOL TARTRATE 25 MG TAB PO SCH ×2 (10:55→21:38)
[2018-10-22 11:02] LABS: BUN/Creatinine Ratio 5.9; Calcium 9.1 mg/dL (8.5-10.1); Magnesium 2.4 mg/dL (1.6-2.6); Potassium 3.6 mmol/L (3.5-5.1)
[2018-10-22] MEDS: clonazePAM 0.5 MG TAB PO PRN (11:02)
[2018-10-22 12:00] VITALS: BP 127/69
--- NOTE | 2018-10-22 14:40 | NUR ---
Nutrition Assessment Notes please see attached link for complete assessment Est. Needs ABW [id number] kcal (20-23 kcal/kgBW), 71-78 gms pro (1.0-1.1 gms/kgBW). Will continue to monitor pertinent labs and reassess nutrient need prn Addendum: 10/22/18 at [address] Amended: Links added.
[2018-10-22 17:00] VITALS: BP 126/82
[2018-10-22 22:00] VITALS: BP 138/86
[2018-10-22] MEDS: ZOLPIDEM TARTRATE 5 MG TAB PO PRN (23:52)
[2018-10-23 05:00] VITALS: BP 140/91
[2018-10-23] MEDS: KETOROLAC TROMETH 30 MG/ML 1ML VIAL IV PRN ×2 (05:40→11:47)
[2018-10-23] MEDS: GABAPENTIN 400 MG CAP PO SCH ×2 (05:40→14:12)
[2018-10-23] MEDS: SUCRALFATE 1 GM/10 ML ORAL SUSP PO SCH ×3 (05:40→18:08)
[2018-10-23] MEDS: diphenhdrAMINE HCL 50 MG/1 ML VL IV PRN ×3 (05:40→18:08)
[2018-10-23 05:55] LABS: Hematocrit 37.9 % (36.0-46.0); Hemoglobin 12.5 g/dL (12.2-16.2)
[2018-10-23] MEDS: PROMETHAZINE HCL 25 MG/ML 1ML IV PRN ×4 (06:00→18:09)
--- NOTE | 2018-10-23 07:08 | NUR ---
Report given to Isidra Armendariz to assume care, patient is resting no distress.
--- NOTE | 2018-10-23 07:35 | NUR ---
Opening Shift Note Assumed care of patient, Pt resting in bed awake and alert. No S/S of distress or SOB. Pt denies any pain at this time. Bed in lowest and locked position with side rails up x2. Instructed on POC and to call for assist PRN, will continue to monitor for changes Q1hr and PRN.
[2018-10-23 08:00] VITALS: BP 138/88
[2018-10-23 08:08] VITALS: BP 138/88
[2018-10-23] MEDS: PANTOPRAZOLE 40 MG TAB PO SCH (10:11)
[2018-10-23] MEDS: CITALOPRAM HYDROBR 20 MG TAB PO SCH (10:11)
[2018-10-23] MEDS: LISINOPRIL 20 MG TAB PO SCH (10:11)
[2018-10-23] MEDS: METOPROLOL TARTRATE 25 MG TAB PO SCH (10:12)
[2018-10-23] MEDS: clonazePAM 0.5 MG TAB PO PRN (10:19)
[2018-10-23] MEDS: HYOSCYAMINE SULF 0.125 MG ODT TAB PO PRN (10:26)
[2018-10-23 12:00] VITALS: BP 145/85
--- NOTE | 2018-10-23 12:50 | NUR ---
CALLED DR. FRANCO DUE TO THE PT C/O PAIN RATED AT AN 8/10 AFTER THE ADMINISTRATION OF PAIN MEDICATIONS. DR. FRANCO STATED THAT SHE WILL EVALUATE THE SITUATION.
[2018-10-23] MEDS ORDERED: MORPHINE SULF INJ 2 MG/ML SYRINGE 1ML IV ONE (13:30)
[2018-10-23] MEDS ORDERED: HYOS0.1297 PO (14:04)
[2018-10-23] MEDS ORDERED: ONDA-133 PO (14:05)
[2018-10-23 16:00] VITALS: BP 145/85
--- NOTE | 2018-10-23 16:00 | NUR ---
MIDLINE DRESSING CHANGE. DRESSING CHANGED DUE PT REPORTED THAT THE DRESSING WAS NO LONGER INTACT. CLEANED AREA WITH CHLORHEXIDINE SWABS AND RE-DRESSED THE MIDLINE WITH CLEAR TEGADERM DRESSING.
[2018-10-23 16:54] VITALS: BP 139/98
--- NOTE | 2018-10-23 18:00 | NUR ---
Pt tolerated Soft dinner diet. Will discharge as ordered.
--- NOTE | 2018-10-23 18:30 | NUR ---
Discharge instructions given as ordered. Encourage to follow up with PMD as instructed. All questions and concerns addressed. Patient verbalized understanding. Medication reconciliation form completed and copy given to patient. No Home medications held in Pharmacy. No needed vaccines. IV Mid-line removed with catheter intact, pressure dressing applied.
--- NOTE | 2018-10-23 19:00 | NUR ---
Patient taken to vehicle via wheelchair with all personal belongings, accompanied by staff. No distress noted at time of departure.
== END 2018-10-23 19:00 | disposition home or self-care (01) | DRG 377 ==
LOC: ER 21:23 → OVERFLOW 10-19 05:57 → WEST WING 10-19 08:39
PROVIDERS: ADMIT Nurse Practitioner Family; ATTEND Internal Medicine
DX: K92.2 Gastrointestinal hemorrhage, unspecified (principal); N17.0 Acute kidney failure with tubular necrosis; F11.20 Opioid dependence, uncomplicated; K64.8 Other hemorrhoids; K58.9 Irritable bowel syndrome, unspecified; E11.9 Type 2 diabetes mellitus without complications; J45.909 Unspecified asthma, uncomplicated; I10 Essential (primary) hypertension; Z90.49 Acquired absence of other specified parts of digestive tract; F41.9 Anxiety disorder, unspecified; E78.5 Hyperlipidemia, unspecified; M79.7 Fibromyalgia; E66.01 Morbid (severe) obesity due to excess calories; D64.9 Anemia, unspecified; G89.29 Other chronic pain; Z82.49 Family history of ischemic heart disease and other diseases of the circulatory system; Z79.899 Other long term (current) drug therapy; Z79.84 Long term (current) use of oral hypoglycemic drugs; F32.9 Major depressive disorder, single episode, unspecified; Z68.33 Body mass index [BMI] 33.0-33.9, adult
CPT/HCPCS: 36415; 74176; 76705; 80048; 80053; 81001; 82270; 82962; 83735; 84132; 85014; 85018; 85025; 85610; 85730; 86850; 86900; 86901; 87081; 96365; 96367; 96375; 96376; G0378; J1885; J1956; J2405; J3490

== ENCOUNTER 2019-06-15 12:36 | Emergency (ER) | payer BC ==
[~2019-06-15] VITALS: Ht 162.6 cm; Wt 90.3 kg
[~2019-06-15 12:36] MED LIST changes: +CLON1TAB PO; +HYOS0.1297 PO; -LEVO500T21 PO; -METR500T PO; +ONDA-133 PO
[2019-06-15 14:18] LABS: Alcohol, Urine < 3.0 mg/dL (0-5); Amphetamine Screen, Urine NEGATIVE (NEGATIVE); Barbiturate Scree,Urine NEGATIVE (NEGATIVE); Benzodiazephine Screen, Urine NEGATIVE (NEGATIVE); Cannabinoid Screen, Urine NEGATIVE (NEGATIVE); Cocaine Screen, Urine NEGATIVE (NEGATIVE); Opiate Scree,Urine NEGATIVE (NEGATIVE); Phencyclidine Screen, Urine NEGATIVE (NEGATIVE)
[2019-06-15 14:20] LABS: Urine Bacteria NONE SEEN /hpf (None Seen); Urine Blood 2+ /uL (Negative); Urine Hyaline Cast MOD /lpf (0 - 2); Urine Mucus FEW (None Seen); Urine Specific Gravity 1.018 (1.001-1.035); Urine WBC 211 /hpf (0 - 5)
[2019-06-15 15:15] LABS: Basophils # (auto) 0.2 uL; Basophils % (auto) 1.3 % (0.0-2.0); Eosinophils # (auto) 0.1 uL; Eosinophils % (auto) 0.8 % (0.0-7.0); Hematocrit 47.2 % (36.0-46.0); Hemoglobin 15.6 g/dL (12.2-16.2); Lymphocytes # (auto) 2.9 uL; Lymphocytes % (auto) 20.7 % (10.0-50.0); Mean Corpuscular Hemoglobin 28.8 pg (28.0-32.0); Mean Corpuscular Hgb Conc. 33.1 g/dL (32.0-36.0); Mean Corpuscular Volume 87.3 fL (80.0-100.0); Monocytes # (auto) 0.9 uL; Monocytes % (auto) 6.5 % (0.0-12.0); Neutrophils # (auto) 9.8 uL; Neutrophils % (auto) 70.7 % (37.0-80.0); Nucleated Red Blood Cells % 0.1 %; Platelet Count (auto) 314 10^3/uL (140-450); Red Cell Distribution Width 14.8 % (11.8-14.3); White Blood Cell 13.9 10^3/uL (4.4-10.8)
[2019-06-15 15:25] LABS: Albumin 4.5 g/dL (3.4-5.0); Calcium 10.2 mg/dL (8.5-10.1)
[2019-06-15 15:28] LABS: BUN/Creatinine Ratio 14.5; Bilirubin, Total 1.6 mg/dL (0.2-1.0); Total Protein 9.8 g/dL (6.4-8.2)
[2019-06-15] MEDS: POTASSIUM CHL 20 Meq TABLET PO ONE (20:45)
[2019-06-15] MEDS: MORPHINE SULFATE 4 MG/ML SYR/VIAL IV ONE (21:56)
[2019-06-15] MEDS: SODIUM CHLORIDE 0.9% 1,000 ML IV ONE ×2 (21:56→22:58)
[2019-06-15] MEDS: ONDANSETRON HCL 4 MG/2 ML VIAL IV ONE (21:57)
[2019-06-15] MEDS: PANTOPRAZOLE 40 MG/10 ML VIAL INJ IV ONE (22:11)
[2019-06-15] MEDS: cefTRIAXone 1GM/50ML D5W 50 ML IV ONE (22:12)
[2019-06-15] MEDS: POTASSIUM CHL 20MEQ/100ML 100 ML IV ONE (22:58)
[2019-06-16 01:00] VITALS: BP 139/64
== END 2019-06-16 01:25 | disposition home or self-care (01) ==
LOC: ER 12:40
DX: N39.0 Urinary tract infection, site not specified (principal); K29.70 Gastritis, unspecified, without bleeding; F12.10 Cannabis abuse, uncomplicated; E11.9 Type 2 diabetes mellitus without complications; E78.5 Hyperlipidemia, unspecified; I10 Essential (primary) hypertension; Z90.49 Acquired absence of other specified parts of digestive tract; Z79.899 Other long term (current) drug therapy
CPT/HCPCS: 36415; 74176; 80053; 80307; 81001; 82962; 85025; 93005; 96365; 96375; 99284; C9113; J0696; J2270; J2405; J3480